=== PATIENT | female | born 1970 | race Caucasian/White ===

== ENCOUNTER 2016-08-08 06:30 | Emergency (ER) | payer OTHER ==
[~2016-08-08] VITALS: Ht 157.5 cm; Wt 113.4 kg
[~2016-08-08 06:30] MED LIST: ALPR1TAB2 PO; DIAZ10TA7 PO; ORE25 PO; VIC PO
[2016-08-08 06:42] VITALS: BP 129/74
--- NOTE | 2016-08-08 07:01 | NUR ---
TO ER BED 8
--- NOTE | 2016-08-08 07:49 | NUR ---
PT WENT TO XRAY;ACCOMPANIED BY TECH
--- NOTE | 2016-08-08 07:51 | NUR ---
PATIENT PRESENTS TO ED WITH RT LEG PAIN, S/P FALL LAST WEEK. PT STATES SHE HURT THE SAME FOOT AND WAS SEEN HERE IN ER LAST DEC.PT STATES SHE WAS DX W/ TORN LIGAMENT. RT FOOT IS SWOLLEN;DENIES N/V/D; SKIN IS PINK/WARM/DRY; AAOX4 WITH EVEN AND STEADY GAIT; LUNGS CLEAR BL; HR EVEN AND REGULAR; PT DENIES ANY FEVER, CP, SOB, OR COUGH AT THIS TIME; PATIENT STATES PAIN OF 9/10 AT THIS TIME; PATIENT POSITIONED FOR COMFORT; HOB ELEVATED; BEDRAILS UP X2; BED DOWN. ALL MONITORS IN PLACED.
--- NOTE | 2016-08-08 08:30 | NUR ---
VICKY CHRISTENSEN AT BEDSIDE.
--- NOTE | 2016-08-08 08:56 | NUR ---
PT LYING ON BED;NO ACUTE DISTRESS NOTED;WILL CONTINUE TO MONITOR PT.
--- NOTE | 2016-08-08 09:57 | NUR ---
PT RESTING ON BED;ASKED WHAT TIME SHE IS GOING TO BE DISCHARGED;EXPALINED TO PT THE DR IS DOING EVERYTHING SO SHE CAN BE DISCHARGE SOON;
[2016-08-08 10:52] VITALS: BP 124/62
== END 2016-08-08 10:52 | disposition home or self-care (01) ==
LOC: MED 06:30
DX: S93.401A Sprain of unspecified ligament of right ankle, initial encounter (principal); S83.8X1A Sprain of other specified parts of right knee, initial encounter; F41.9 Anxiety disorder, unspecified; Z90.49 Acquired absence of other specified parts of digestive tract; W01.0XXA Fall on same level from slipping, tripping and stumbling without subsequent striking against object, initial encounter; Y93.89 Activity, other specified; Y92.89 Other specified places as the place of occurrence of the external cause; Y99.8 Other external cause status
CPT/HCPCS: 73562; 73630; 99284

== ENCOUNTER 2016-11-17 06:05 | Emergency (ER) | payer OTHER ==
[~2016-11-17] VITALS: Ht 157.5 cm; Wt 95.3 kg
[2016-11-17 06:15] VITALS: BP 149/96
[2016-11-17] MEDS ORDERED: ONDANSETRON 4 MG/2 ML VIAL ONE (06:42)
[2016-11-17] MEDS ORDERED: KETOROLAC 30 MG/ML VIAL ONE (06:43)
[2016-11-17 07:18] VITALS: BP 126/96
== END 2016-11-17 07:10 | disposition home or self-care (01) ==
LOC: MED 06:05
DX: R11.2 Nausea with vomiting, unspecified (principal); R19.7 Diarrhea, unspecified; Z88.1 Allergy status to other antibiotic agents
CPT/HCPCS: 99283; J1885; J2405; J7030

== ENCOUNTER 2017-06-06 14:03 | Emergency (ER) | payer OTHER ==
[~2017-06-06] VITALS: Ht 157.5 cm; Wt 106.6 kg
[2017-06-06 14:10] VITALS: BP 136/98
[2017-06-06] MEDS ORDERED: ONDANSETRON 4 MG ODT PO ONE (15:30)
[2017-06-06] MEDS ORDERED: LORazepam 1 MG TAB PO ONE (15:30)
[2017-06-06] MEDS ORDERED: MECLIZINE 25 MG TAB PO ONE (15:30)
[2017-06-06 16:52] VITALS: BP 136/98
== END 2017-06-06 16:52 | disposition home or self-care (01) ==
LOC: MED 14:03
DX: H81.11 Benign paroxysmal vertigo, right ear (principal); Z88.1 Allergy status to other antibiotic agents
CPT/HCPCS: 99284; J8597; S0119

== ENCOUNTER 2018-02-07 08:21 | Emergency (ER) | payer OTHER ==
[~2018-02-07] VITALS: Ht 157.5 cm; Wt 106.6 kg
[2018-02-07 08:35] VITALS: BP 138/93
[2018-02-07] MEDS ORDERED: NACL 0.9% 1,000 ML IV SCH (09:26)
[2018-02-07] MEDS ORDERED: LORazepam 2 MG/ML VIAL IVP ONE (09:30)
[2018-02-07] MEDS ORDERED: ONDANSETRON 4 MG/2 ML VIAL IVP ONE (09:30)
[2018-02-07] MEDS ORDERED: PANTOPRAZOLE 40 MG INJ VIAL IVP ONE (09:30)
[2018-02-07 09:59] LABS: BASOPHILS # (AUTO) 0.1 K/uL (0.00-0.22); EOSINOPHILS # (AUTO) 0.3 K/uL (0-0.4); HEMATOCRIT 39.6 % (36-48); HEMOGLOBIN 12.6 g/dL (12.0-16.0); LYMPHOCYTES # (AUTO) 2.9 K/uL (2.5-16.5); LYMPHOCYTES % (AUTO) 29.5 % (20.5-51.1); MEAN CORPUSCULAR HEMOGLOBIN 27 pg (27-31); MEAN CORPUSCULAR HGB CONC 32 g/dL (33-37); MEAN CORPUSCULAR VOLUME 85.9 fL (80-94); MONOCYTES # (AUTO) 0.7 K/uL (0.8-1.0); MONOCYTES % (AUTO) 6.6 % (1.7-9.3); NEUTROPHILS # (AUTO) 5.9 K/uL (1.8-7.7); NEUTROPHILS % (AUTO) 59.9 % (42.2-75.2); PLATELET COUNT (AUTO) 344 K/uL (140-450); RED BLOOD CELL COUNT(AUTO) 4.61 MIL/uL (4.20-5.40); RED CELL DISTRIBUTION WIDTH 15.6 % (11.6-13.7)
[2018-02-07 10:21] LABS: ANION GAP 16.7 (8-16); CARBON DIOXIDE 24.3 mmol/L (21-32); CREATININE 1.2 mg/dL (0.6-1.3)
[2018-02-07 10:26] LABS: TOTAL BILIRUBIN 0.5 mg/dL (0.0-1.0)
[2018-02-07 10:31] LABS: BILIRUBIN,URINE NEGATIVE (NEGATIVE); BLOOD, URINE TRACE (NEGATIVE); COLOR,URINE YELLOW (YELLOW); PH,URINE 6.5 (5.0-9.0); UGLUCOSE NEGATIVE (NEGATIVE)
[2018-02-07 10:32] LABS: LEUKOCYTE ESTERASE ,URINE NEGATIVE (NEGATIVE); NITRITE, URINE NEGATIVE (NEGATIVE)
[2018-02-07 10:38] LABS: APPEARANCE,URINE SLIGHTLY HAZY (CLEAR); RBC,URINE 0-5 (RARE) /HPF (0-5)
[2018-02-07 10:42] LABS: WBC,URINE NONE SEEN /HPF (0-5)
[2018-02-07 10:43] LABS: YEAST,URINE Few /HPF (None Seen)
[2018-02-07] MEDS ORDERED: FLUCONAZOLE 100 MG TAB PO ONE (11:45)
[2018-02-07 12:05] VITALS: BP 126/59
== END 2018-02-07 12:06 | disposition home or self-care (01) ==
LOC: MED 08:21
DX: K29.70 Gastritis, unspecified, without bleeding (principal); F41.9 Anxiety disorder, unspecified; Z90.49 Acquired absence of other specified parts of digestive tract; Z79.899 Other long term (current) drug therapy; Z88.1 Allergy status to other antibiotic agents
CPT/HCPCS: 36415; 80053; 81001; 81025; 83690; 85025; 87086; 96361; 96374; 96375; 99284; C9113; J2060; J2405; J7030

== ENCOUNTER 2018-02-11 05:00 | Observation (INO) | payer OTHER ==
[~2018-02-11] VITALS: Ht 157.5 cm; Wt 134.9 kg
[2018-02-11 05:11] VITALS: BP_SYST 120; BP_DIAS 0; BP_DIAS 88
[2018-02-11] MEDS ORDERED: LORazepam 2 MG/ML VIAL IVP ONE (06:00)
[2018-02-11] MEDS ORDERED: ONDANSETRON 4 MG/2 ML VIAL IVP ONE (06:00)
[2018-02-11] MEDS ORDERED: NACL 0.9% 1,000 ML IV ONE (06:00)
[2018-02-11 06:52] LABS: FREE T4 (FREE THYROXINE) 1.28 ng/dL (0.76-1.46); THYROID STIMULATING HORMONE 4.69 uIU/mL (0.34-3.74)
[2018-02-11 07:00] LABS: BARBITURATE, URINE NEG. ng/ml (NEG <=200); BENZODIAZEPINE, URINE NEG. ng/mL (NEG <=200); CANNABINOID, URINE POS. ng/mL (NEG <=50); COCAINE, URINE NEG. ng/mL (NEG <=300); OPIATE, URINE NEG. ng/mL (NEG <=2000); PHENCYCLIDINE SCREEN,URINE NEG. ng/mL (NEG <=25)
[2018-02-11] MEDS ORDERED: NACL 0.9% 1,000 ML IV SCH (07:39)
[2018-02-11] MEDS ORDERED: ACETAMINOPHEN 325 MG TAB PO PRN (07:40)
[2018-02-11] MEDS ORDERED: ONDANSETRON 4 MG/2 ML VIAL IVP PRN (07:40)
[2018-02-11 08:55] VITALS: BP 122/66
[2018-02-11] MEDS ORDERED: PANTOPRAZOLE 40 MG INJ VIAL IVP SCH (09:00)
[2018-02-11 09:03] VITALS: BP 135/72
[2018-02-11] MEDS ORDERED: MIDAZOLAM 2 MG/2 ML VIAL ONE ×2 (11:15→11:16)
[2018-02-11] MEDS ORDERED: fentaNYL 0.05 MG/ML VIAL ONE (11:15)
[2018-02-11] MEDS ORDERED: MIDAZOLAM 2 MG/2 ML VIAL IVP ONE (12:05)
[2018-02-11] MEDS ORDERED: fentaNYL 0.05 MG/ML VIAL IVP ONE (12:05)
[2018-02-11] MEDS ORDERED: PANT40EC PO (15:40)
[2018-02-11] MEDS ORDERED: SUCR1TAB35 PO (15:41)
[2018-02-11] MEDS ORDERED: BEN10 PO (15:43)
== END 2018-02-11 16:15 | disposition home or self-care (01) ==
LOC: MED 05:00 → MTU 07:39 → INTOOBSV 07:39
PROVIDERS: ADMIT Hospitalist; ATTEND Hospitalist
PROC: 0DB68ZX Excision of Stomach, Via Natural or Artificial Opening Endoscopic, Diagnostic (ICD-10-PCS; principal; 2018-02-11 11:00)
DX: K29.00 Acute gastritis without bleeding (principal); K21.0 Gastro-esophageal reflux disease with esophagitis; K44.9 Diaphragmatic hernia without obstruction or gangrene; R11.0 Nausea; R10.13 Epigastric pain; Z88.1 Allergy status to other antibiotic agents; Z91.010 Allergy to peanuts
CPT/HCPCS: 36415; 43239; 76705; 80305; 82948; 84439; 84443; 84484; 87081; 88305; 88312; 88313; 93005; 96361; 96374; 96375; 99285; C9113; G0378; J2060; J2250; J2405; J3010; J7030; Q0092

== ENCOUNTER 2019-12-20 23:26 | Emergency (ER) | payer OTHER ==
[~2019-12-20] VITALS: Ht 157.5 cm; Wt 123.8 kg
[~2019-12-20 23:26] MED LIST changes: +BEN10 PO; +PANT40EC PO; +SUCR1TAB35 PO
[2019-12-20 23:35] VITALS: BP 145/90
--- NOTE | 2019-12-20 23:40 | NUR ---
w/c assist to bed 03
--- NOTE | 2019-12-20 23:47 | NUR ---
49 Y/O MALE C/O LT ANKLE/FOOT PAIN S/P FALLING IN THE SHOWER X YESTERDAY. PT STATES 10/10 STABBING PAIN. SWELLING NOTED. NO REDNESS. TENDER TO TOUCH. SKIN WARM AND DRY. PT STATES SHE TOOK A TYLENOL XTODAY WITH NO RELIEF. MHX: GALLBLADDER REMOVED, , GASTRITIS, ULCER ALLERGIES: KEFLEX, BACTRIM, MORPHINE,AMOXICILLIN, BENADRYL
--- NOTE | 2019-12-20 23:49 | NUR ---
XRAY AT BEDSIDE
--- NOTE | 2019-12-21 00:43 | NUR ---
providing relief for primary Rn Blake. assumed pt care at this time.
--- NOTE | 2019-12-21 00:47 | NUR ---
Dr. Aguirre at bedside.
[2019-12-21] MEDS ORDERED: KETOROLAC 60 MG/2 ML VIAL IM ONE (00:55)
--- NOTE | 2019-12-21 01:45 | NUR ---
PTS LEFT ANKEL WAS PLACED IN A ANKEL SPLINT. PTS PMSC WNL. PT WAS ALSO GIVEN CRUTCHES. PTS SHOWED GOOD USE OF CRUTCHES.
[2019-12-21 01:52] VITALS: BP 139/88
--- NOTE | 2019-12-21 01:52 | NUR ---
Patient discharged with v/s stable. Written and verbal after care instructions given and explained. Patient alert, oriented and verbalized understanding of instructions. Wheel Chair Assisted with to car. All questions addressed prior to discharge. ID band removed. Patient advised to follow up with PMD. Rx of MOTRIN AND NORCO given. Patient educated on indication of medication including possible reaction and side effects. Opportunity to ask questions provided and answered.
== END 2019-12-21 01:52 | disposition home or self-care (01) ==
LOC: MED 23:26
DX: S82.91XA Unspecified fracture of right lower leg, initial encounter for closed fracture (principal); Z88.1 Allergy status to other antibiotic agents; Z88.6 Allergy status to analgesic agent; Z88.8 Allergy status to other drugs, medicaments and biological substances; Z90.49 Acquired absence of other specified parts of digestive tract; Z98.890 Other specified postprocedural states; Z79.899 Other long term (current) drug therapy; X58.XXXA Exposure to other specified factors, initial encounter; Y93.89 Activity, other specified; Y92.89 Other specified places as the place of occurrence of the external cause; Y99.8 Other external cause status
CPT/HCPCS: 29515; 73610; 96372; 99283; J1885; Q0092

== ENCOUNTER 2020-01-10 19:58 | Emergency (ER) | payer OTHER ==
[~2020-01-10] VITALS: Ht 157.5 cm; Wt 131.1 kg
[2020-01-10 20:05] VITALS: BP 141/87
[2020-01-10] MEDS ORDERED: GABAPENTIN 300 MG CAP PO ONE (20:35)
[2020-01-10] MEDS ORDERED: ACETAMINOPHEN EXTRA STRENGTH 500 MG TAB PO ONE (20:35)
[2020-01-10 21:03] LABS: BASOPHILS # (AUTO) 0.1 K/uL (0.00-0.22); BASOPHILS % (AUTO) 0.8 % (0.0-2.0); EOSINOPHILS # (AUTO) 0.2 K/uL (0-0.4); EOSINOPHILS % (AUTO) 2.1 % (0.0-4.0); HEMATOCRIT 34.3 % (36-48); HEMOGLOBIN 11.2 g/dL (12.0-16.0); LYMPHOCYTES # (AUTO) 3.2 K/uL (2.5-16.5); LYMPHOCYTES % (AUTO) 31.8 % (20.5-51.1); MEAN CORPUSCULAR HEMOGLOBIN 26 pg (27-31); MEAN CORPUSCULAR HGB CONC 33 g/dL (33-37); MEAN CORPUSCULAR VOLUME 79.5 fL (80-94); MONOCYTES # (AUTO) 0.8 K/uL (0.8-1.0); MONOCYTES % (AUTO) 7.6 % (1.7-9.3); NEUTROPHILS # (AUTO) 5.9 K/uL (1.8-7.7); NEUTROPHILS % (AUTO) 57.7 % (42.2-75.2); PLATELET COUNT (AUTO) 345 K/uL (140-450); RED BLOOD CELL COUNT(AUTO) 4.32 MIL/uL (4.20-5.40); WHITE BLOOD COUNT (AUTO) 10.2 K/uL (4.8-10.8)
[2020-01-10] MEDS ORDERED: NACL 0.9% 1,000 ML IV ONE (21:05)
[2020-01-10] MEDS: KETOROLAC 15 MG/ML VIAL IVP ONE ×2 (21:07→21:57)
[2020-01-10 21:28] LABS: ALBUMIN 3.1 g/dL (3.4-5.0); CARBON DIOXIDE 25.9 mmol/L (21-32); CREATININE 1.2 mg/dL (0.6-1.3); POTASSIUM 3.9 mmol/L (3.5-5.1); TOTAL BILIRUBIN 0.6 mg/dL (0.0-1.0)
[2020-01-10 23:35] VITALS: BP 141/87
== END 2020-01-10 23:35 | disposition home or self-care (01) ==
LOC: MED 19:58
DX: R10.32 Left lower quadrant pain (principal); D25.9 Leiomyoma of uterus, unspecified; I10 Essential (primary) hypertension; Z88.1 Allergy status to other antibiotic agents; Z88.2 Allergy status to sulfonamides; Z88.6 Allergy status to analgesic agent; Z90.49 Acquired absence of other specified parts of digestive tract; Z98.890 Other specified postprocedural states; Z79.899 Other long term (current) drug therapy
CPT/HCPCS: 36415; 74177; 80053; 81002; 81025; 83690; 84703; 85025; 96361; 96374; 99285; J1885; Q9967

== ENCOUNTER 2020-07-02 07:55 | Emergency (ER) | payer OTHER ==
[~2020-07-02] VITALS: Ht 157.5 cm; Wt 135.2 kg
[~2020-07-02 07:55] MED LIST changes: +HYDR-4004 PO; -ORE25 PO
[2020-07-02 08:04] VITALS: BP 142/93
--- NOTE | 2020-07-02 08:04 | NUR ---
Patient transferred to bed 6 via wheelchair by triage nurse.
--- NOTE | 2020-07-02 08:04 | NUR ---
Dr. Kebede is evaluating the patient at bedside.
[2020-07-02] MEDS ORDERED: NACL 0.9% 1,000 ML IV ONE (08:10)
[2020-07-02] MEDS ORDERED: MECLIZINE 25 MG TAB PO ONE (08:10)
[2020-07-02] MEDS ORDERED: ONDANSETRON 4 MG/2 ML VIAL IVP ONE (08:10)
[2020-07-02] MEDS ORDERED: LORazepam 2 MG/ML VIAL IVP ONE (08:10)
--- NOTE | 2020-07-02 08:51 | NUR ---
bib family c/o dizziness last night with N/V. pt states she feels like she is having vertigo, felt like room spinning when she was lying down in bed this am. took meclizine and vomited and then took another one after hx: gastritis, anxiety, vertigo, cholecystectomy
--- NOTE | 2020-07-02 09:17 | NUR ---
PT WHEELED TO BATHROOM.
[2020-07-02] MEDS ORDERED: MECL-303 PO (09:54)
[2020-07-02] MEDS ORDERED: DIAZ2TAB6 PO (09:54)
[2020-07-02] MEDS ORDERED: ONDA-24 SL (09:54)
--- NOTE | 2020-07-02 09:57 | NUR ---
Dr. Kebede is reevaluating the patient at bedside.
[2020-07-02 11:15] VITALS: BP 138/63
--- NOTE | 2020-07-02 11:15 | NUR ---
Patient discharged with v/s stable. Written and verbal after care instructions given and explained. Patient alert, oriented and verbalized understanding of instructions. Ambulatory with steady gait. All questions addressed prior to discharge. ID band removed. Patient advised to follow up with PMD. Rx of VALIUM, ANTIVERT, AND ZOFRAN given. Patient educated on indication of medication including possible reaction and side effects. Opportunity to ask questions provided and answered.
[2020-07-03] MEDS ORDERED: MECL-303 PO (08:57)
== END 2020-07-02 11:15 | disposition home or self-care (01) ==
LOC: MED 07:55
DX: R42 Dizziness and giddiness (principal); Z88.1 Allergy status to other antibiotic agents; Z88.5 Allergy status to narcotic agent; Z79.899 Other long term (current) drug therapy
CPT/HCPCS: 81002; 81025; 96361; 96374; 96375; 99284; J2060; J2405; J7030; J8597

== ENCOUNTER 2020-07-03 06:10 | Emergency (ER) | payer OTHER ==
[~2020-07-03] VITALS: Ht 157.5 cm; Wt 134.7 kg
[~2020-07-03 06:10] MED LIST changes: +DIAZ2TAB6 PO; +MECL-303 PO; +ONDA-24 SL
[2020-07-03 06:21] VITALS: BP 126/78
--- NOTE | 2020-07-03 06:31 | NUR ---
PT TAKEN TO BED 11
--- NOTE | 2020-07-03 06:42 | NUR ---
49 Y/O FEMALE BIB FOR C/O LEFT LOWER BACK PAIN. PER PATIENT, " I WOKE UP & WHEN I GOT UP FROM BED AND I FELT A 'POP/PUNCH' ON MY LOWER LEFT BACK BY MY RIB" PT STATES HER PAIN IS A 10/10 "SHARP"; RADIATES ONLY WITH MOVEMENT. PATIENT WAS SEEN YESTERDAY FOR VERTIGO AND SINUSITIS MEDICATIONS WHERE GIVEN. MEDHX: GALLBLADDER SURGERY; 2 ; GENERAL ANXIETY DISORDER; TORN ACL IN THE LEFT KNEE ALLERGIES: PENICILLIN; KEFLEX; BACTRIM; MORPHINE; BENADRYL; TYLENOL WITH CODEINE MEDICATIONS: MECLIZINE; DIAZEPAM; SULCRUFATE; OMEPRAZOLE
--- NOTE | 2020-07-03 06:51 | NUR ---
Pt was given water cup and ice chips as per request.
--- NOTE | 2020-07-03 07:13 | NUR ---
Dr. Myers examining patient.
--- NOTE | 2020-07-03 07:15 | NUR ---
Report given to Gladys GALE for continuity of care.
--- NOTE | 2020-07-03 07:16 | NUR ---
Received report from BALJINDER Bardales, transfer of care at this time.
--- NOTE | 2020-07-03 07:32 | NUR ---
automobile glass technician at pt bedside.
[2020-07-03] MEDS: MECLIZINE 25 MG TAB PO ONE (07:34)
[2020-07-03] MEDS: ONDANSETRON 4 MG/2 ML VIAL IVP ONE (07:37)
[2020-07-03] MEDS: NACL 0.9% 1,000 ML IV ONE (07:38)
--- NOTE | 2020-07-03 07:39 | NUR ---
Pt unable to provide UA at this time, made aware at this time.
[2020-07-03 07:41] LABS: BASOPHILS # (AUTO) 0.1 K/uL (0.00-0.22); BASOPHILS % (AUTO) 0.9 % (0.0-2.0); EOSINOPHILS # (AUTO) 0.2 K/uL (0-0.4); EOSINOPHILS % (AUTO) 2.5 % (0.0-4.0); HEMATOCRIT 35.5 % (36-48); HEMOGLOBIN 11.3 g/dL (12.0-16.0); LYMPHOCYTES # (AUTO) 2.4 K/uL (2.5-16.5); MEAN CORPUSCULAR HEMOGLOBIN 25 pg (27-31); MEAN CORPUSCULAR HGB CONC 32 g/dL (33-37); MEAN CORPUSCULAR VOLUME 78.6 fL (80-94); MONOCYTES # (AUTO) 0.5 K/uL (0.8-1.0); MONOCYTES % (AUTO) 6.6 % (1.7-9.3); NEUTROPHILS # (AUTO) 4.1 K/uL (1.8-7.7); PLATELET COUNT (AUTO) 370 K/uL (140-450); RED BLOOD CELL COUNT(AUTO) 4.51 MIL/uL (4.20-5.40); RED CELL DISTRIBUTION WIDTH 17.1 % (11.6-13.7); WHITE BLOOD COUNT (AUTO) 7.2 K/uL (4.8-10.8)
[2020-07-03 07:56] LABS: ALBUMIN 3.2 g/dL (3.4-5.0); ANION GAP 12.4 (8-16); CARBON DIOXIDE 25.6 mmol/L (21-32); CREATININE 1.2 mg/dL (0.6-1.3); TOTAL BILIRUBIN 0.5 mg/dL (0.0-1.0)
[2020-07-03] MEDS: KETOROLAC 15 MG/ML VIAL IVP ONE (07:56)
--- NOTE | 2020-07-03 08:25 | NUR ---
Pt W/C assisted to restroom for UA collection.
--- NOTE | 2020-07-03 08:29 | NUR ---
Pt ambulated to ER bed 11 with a steady gait.
[2020-07-03] MEDS ORDERED: MECL-303 PO (08:57)
[2020-07-03 09:20] VITALS: BP 117/69
--- NOTE | 2020-07-03 09:21 | NUR ---
Patient discharged with v/s stable. Written and verbal after care instructions given and explained. Patient alert, oriented and verbalized understanding of instructions. Ambulatory with steady gait. All questions addressed prior to discharge. ID band removed. Patient advised to follow up with PMD. Rx of meclizine 25mg TID PO given. Patient educated on indication of medication including possible reaction and side effects. Opportunity to ask questions provided and answered.
== END 2020-07-03 09:14 | disposition home or self-care (01) ==
LOC: MED 06:10
DX: H81.399 Other peripheral vertigo, unspecified ear (principal)
CPT/HCPCS: 36415; 80053; 81002; 81025; 85025; 96361; 96374; 96375; 99284; J1885; J2405; J7030; J8597; 93005

== ENCOUNTER 2021-01-14 05:55 | Emergency (ER) | payer OTHER ==
[~2021-01-14] VITALS: Ht 157.5 cm; Wt 134.7 kg
[~2021-01-14 05:55] MED LIST changes: +ONDA-188 SL; -ONDA-24 SL
[2021-01-14 05:59] VITALS: BP 141/99
--- NOTE | 2021-01-14 06:15 | NUR ---
PT TAKEN TO BED 8
--- NOTE | 2021-01-14 06:20 | NUR ---
Dr. Bailey examining patient.
--- NOTE | 2021-01-14 06:40 | NUR ---
PATIENT STATES SHE CANNOT PROVIDE A URINE SAMPLE YET SHE WENT TWICE BEFORE COMING
[2021-01-14 06:53] LABS: BASOPHILS # (AUTO) 0.1 K/uL (0.00-0.22); BASOPHILS % (AUTO) 1.2 % (0.0-2.0); EOSINOPHILS # (AUTO) 0.2 K/uL (0-0.4); EOSINOPHILS % (AUTO) 2.4 % (0.0-4.0); HEMATOCRIT 33.4 % (36-48); HEMOGLOBIN 10.8 g/dL (12.0-16.0); LYMPHOCYTES # (AUTO) 2.5 K/uL (2.5-16.5); MEAN CORPUSCULAR HEMOGLOBIN 25 pg (27-31); MEAN CORPUSCULAR HGB CONC 32 g/dL (33-37); MEAN CORPUSCULAR VOLUME 77.1 fL (80-94); MONOCYTES # (AUTO) 0.6 K/uL (0.8-1.0); MONOCYTES % (AUTO) 7.5 % (1.7-9.3); NEUTROPHILS # (AUTO) 4.2 K/uL (1.8-7.7); NEUTROPHILS % (AUTO) 55.9 % (42.2-75.2); PLATELET COUNT (AUTO) 396 K/uL (140-450); RED BLOOD CELL COUNT(AUTO) 4.34 MIL/uL (4.20-5.40); WHITE BLOOD COUNT (AUTO) 7.5 K/uL (4.8-10.8)
--- NOTE | 2021-01-14 07:05 | NUR ---
RECEIVED REPORT FROM KARENA GALE, ASSUMED CARE AT THIS TIME.
[2021-01-14 07:16] LABS: ALBUMIN 3.1 g/dL (3.4-5.0); ANION GAP 8.8 (8-16); CARBON DIOXIDE 27.3 mmol/L (21-32); CREATININE 1.2 mg/dL (0.6-1.3); POTASSIUM 4.1 mmol/L (3.5-5.1); THYROID STIMULATING HORMONE 2.68 uIU/mL (0.34-3.74); TOTAL BILIRUBIN 0.5 mg/dL (0.0-1.0)
--- NOTE | 2021-01-14 07:26 | NUR ---
PATIENT AMBULATED TO RESTROOM WITH STEADY GAIT TO ATTEMPT TO PROVIDE URINE SAMPLE.
[2021-01-14 07:53] VITALS: BP 137/66
--- NOTE | 2021-01-14 07:54 | NUR ---
Patient discharged with v/s stable. Written and verbal after care instructions given and explained. Patient verbalized understanding. Ambulatory with steady gait. All questions addressed prior to discharge. Advised to follow up with PMD.
== END 2021-01-14 07:54 | disposition home or self-care (01) ==
LOC: MED 05:55
DX: R00.2 Palpitations (principal); F41.9 Anxiety disorder, unspecified; K21.9 Gastro-esophageal reflux disease without esophagitis; Z90.49 Acquired absence of other specified parts of digestive tract; Z98.890 Other specified postprocedural states; Z79.899 Other long term (current) drug therapy; Z88.1 Allergy status to other antibiotic agents; Z88.5 Allergy status to narcotic agent; Z88.8 Allergy status to other drugs, medicaments and biological substances
CPT/HCPCS: 36415; 80053; 81002; 81025; 84443; 85025; 93005; 99284

== ENCOUNTER 2021-05-05 05:15 | Emergency (ER) | payer OTHER ==
[~2021-05-05] VITALS: Ht 157.5 cm; Wt 130.2 kg
[2021-05-05 05:26] VITALS: BP 139/71
--- NOTE | 2021-05-05 05:33 | NUR ---
PT TAKEN TO BED 4
--- NOTE | 2021-05-05 05:43 | NUR ---
50 Y/O FEMALE BIB SELF, C/O ABDOMINAL PAIN X3 DAYS. PATIENT PRESENTS TO ED WITH COMPLAINTS OF PAIN, N/V, ADB GURGGLING, LOOSE STOOL, BELCHING, AND A BLOATED FEELING. PT STATES SHE ATE SOMETHING QUESTIONABLE ON MONDAY AND ON MONDAY SHE STARTED TO HAVE SYMPTOMS; PT IS UNABLE TO HOLD DOWN FOOD OR WATER X 3 DAYS. DENIES DIARRHE BUT STATES STOOL IS LOOSE; SKIN IS PINK/WARM/DRY; AAOX4 WITH EVEN AND STEADY GAIT; PT DENIES ANY FEVER, CP, SOB, OR COUGH AT THIS TIME; PATIENT STATES PAIN OF 10/10 AT THIS TIME; VSS; PATIENT SEATED IN CHAIR FOR COMFORT; BED DOWN. ER MD MADE AWARE OF PT STATUS. HX: GERD, CHOLECYSTECTOMY, KAREN, GASTRITIS ALLERGY: KEFLEX, BACTRIM, PCN, MS, BENADRYL MED: SUCRALFATE, FAMOTADINE, OMEPRAZOLE
--- NOTE | 2021-05-05 06:04 | NUR ---
LABS DRAWN AT BEDSIDE
[2021-05-05 06:07] LABS: BASOPHILS # (AUTO) 0.1 K/uL (0.00-0.22); BASOPHILS % (AUTO) 1.1 % (0.0-2.0); EOSINOPHILS # (AUTO) 0.3 K/uL (0-0.4); EOSINOPHILS % (AUTO) 3.3 % (0.0-4.0); HEMATOCRIT 33.7 % (36-48); LYMPHOCYTES # (AUTO) 3.1 K/uL (2.5-16.5); MEAN CORPUSCULAR HEMOGLOBIN 25 pg (27-31); MEAN CORPUSCULAR HGB CONC 33 g/dL (33-37); MEAN CORPUSCULAR VOLUME 76.2 fL (80-94); MONOCYTES # (AUTO) 0.6 K/uL (0.8-1.0); MONOCYTES % (AUTO) 7.1 % (1.7-9.3); NEUTROPHILS # (AUTO) 4.9 K/uL (1.8-7.7); NEUTROPHILS % (AUTO) 54.5 % (42.2-75.2); PLATELET COUNT (AUTO) 410 K/uL (140-450); RED BLOOD CELL COUNT(AUTO) 4.43 MIL/uL (4.20-5.40); RED CELL DISTRIBUTION WIDTH 17.6 % (11.6-13.7); WHITE BLOOD COUNT (AUTO) 9.1 K/uL (4.8-10.8)
[2021-05-05] MEDS: NACL 0.9% 1,000 ML IV SCH (06:18)
--- NOTE | 2021-05-05 06:18 | NUR ---
PT TAKEN TO CT
[2021-05-05] MEDS: KETOROLAC 30 MG/ML VIAL IVP ONE (06:19)
[2021-05-05] MEDS: ONDANSETRON 4 MG/2 ML VIAL IVP ONE (06:19)
[2021-05-05] MEDS: PANTOPRAZOLE 40 MG INJ VIAL IVP ONE (06:20)
--- NOTE | 2021-05-05 06:25 | NUR ---
PT RETURNED FROM CT
[2021-05-05 06:31] LABS: ALBUMIN 2.9 g/dL (3.4-5.0); ANION GAP 11.6 (8-16); CARBON DIOXIDE 24.3 mmol/L (21-32); CREATININE 1.1 mg/dL (0.6-1.3); POTASSIUM 3.9 mmol/L (3.5-5.1); TOTAL BILIRUBIN 0.6 mg/dL (0.0-1.0)
--- NOTE | 2021-05-05 06:44 | NUR ---
Dr. Aguirre examining patient.
[2021-05-05] MEDS ORDERED: ACET-8386 PO (06:58)
[2021-05-05] MEDS ORDERED: ONDA8TAB87 PO (06:58)
[2021-05-05] MEDS ORDERED: IBUP-2213 PO (06:58)
--- NOTE | 2021-05-05 07:35 | NUR ---
TRANSFER OF CARE REPORT GIVEN TO DANNY GALE
[2021-05-05 07:45] VITALS: BP 133/70
--- NOTE | 2021-05-05 08:13 | NUR ---
Patient appears to be resting comfortably in bed. Vital Signs within normal limits. Respirations even and unlabored. Update given in regards care. Call light in reach
--- NOTE | 2021-05-05 08:26 | NUR ---
Lab contacted in regards to urine sample processing. Will process sample now.
[2021-05-05 08:40] LABS: BILIRUBIN,URINE NEGATIVE (NEGATIVE); BLOOD, URINE 3+ (NEGATIVE); COLOR,URINE YELLOW (YELLOW); LEUKOCYTE ESTERASE ,URINE NEGATIVE (NEGATIVE); NITRITE, URINE NEGATIVE (NEGATIVE); UGLUCOSE NEGATIVE (NEGATIVE)
[2021-05-05 08:45] LABS: APPEARANCE,URINE HAZY (CLEAR)
[2021-05-05 09:09] LABS: RBC,URINE 20-50 /HPF (0-5)
[2021-05-05 09:10] LABS: TRICHOMONAS,URINE None Seen /HPF (None Seen); YEAST,URINE None Seen /HPF (None Seen)
[2021-05-05 09:11] LABS: CALCIUM OXALATE CRYSTALS,UR None Seen /HPF (None Seen); OTHER CRYSTALS,URINE None Seen /HPF (None Seen); TRIPLE PHOSPHATE CRYSTAL,UR None Seen /HPF (None Seen); URIC ACID CRYSTALS,URINE None Seen /HPF (None Seen)
[2021-05-05 09:13] LABS: COARSE GRANULAR CASTS,URINE None Seen /LPF (None Seen); FINE GRANULAR CASTS,URINE None Seen /LPF (None Seen); HYALINE CASTS, URINE None Seen /LPF (None Seen); OTHER CASTS, URINE None Seen /LPF (None Seen); RED BLOOD CELL CASTS,URINE None Seen /LPF (None Seen); URINE AMORPHOUS URATE None Seen /HPF (None Seen); WAXY CASTS,URINE None Seen /LPF (None Seen)
--- NOTE | 2021-05-05 09:47 | NUR ---
Patient discharged with v/s stable. Written and verbal after care instructions given and explained. Patient alert, oriented and verbalized understanding of instructions. Ambulatory with steady gait. All questions addressed prior to discharge. ID band removed. Patient advised to follow up with PMD. Rx of NORCO 5/325, IBUPORFEN AND ZOFRAN given. Patient educated on indication of medication including possible reaction and side effects. Opportunity to ask questions provided and answered.
== END 2021-05-05 09:47 | disposition home or self-care (01) ==
LOC: MED 05:15
DX: R10.13 Epigastric pain (principal); R11.2 Nausea with vomiting, unspecified; R42 Dizziness and giddiness; K21.9 Gastro-esophageal reflux disease without esophagitis; Z88.0 Allergy status to penicillin; Z88.1 Allergy status to other antibiotic agents; Z88.5 Allergy status to narcotic agent
CPT/HCPCS: 36415; 74176; 80053; 81001; 83690; 85025; 87086; 96361; 96374; 96375; 99284; C9113; J1885; J2405; J7030

== ENCOUNTER 2021-05-27 02:54 | Emergency (ER) | payer OTHER ==
[~2021-05-27] VITALS: Ht 157.5 cm; Wt 100.7 kg
[~2021-05-27 02:54] MED LIST changes: +ACET-8386 PO; +IBUP-2213 PO; +ONDA8TAB87 PO
[2021-05-27 03:00] VITALS: BP 135/77
--- NOTE | 2021-05-27 03:08 | NUR ---
PT AMBULATED TO BED 07.
--- NOTE | 2021-05-27 03:12 | NUR ---
Dr. Batista at bedside to exam patient.
[2021-05-27] MEDS ORDERED: ALUMINUM HYD/MAG/SIMETHICONE 30 ML, DICYCLOMINE HCL LIQUID 20 MG, LIDOCAINE VISCOUS 2% ... PO ONE ×3 (03:20)
[2021-05-27] MEDS ORDERED: ALUMINUM HYD/MAG/SIMETHICONE 30 ML UDC ONE ×2 (03:22→03:23)
[2021-05-27] MEDS ORDERED: DICYCLOMINE HCL LIQUID 10 MG/5 ML UDC ONE (03:22)
--- NOTE | 2021-05-27 03:40 | NUR ---
PT GIVEN GI COCKTAIL. TOLERATED WELL. VICKY CHRISTENSEN AT BED SIDE
[2021-05-27] MEDS ORDERED: KETOROLAC 60 MG/2 ML VIAL IM ONE (03:50)
[2021-05-27] MEDS ORDERED: ONDANSETRON 4 MG ODT PO ONE (03:50)
[2021-05-27] MEDS ORDERED: DICY10SY13 PO (04:35)
[2021-05-27] MEDS ORDERED: SIME180C9 PO (04:35)
--- NOTE | 2021-05-27 04:42 | NUR ---
Patient discharged with v/s stable. Written and verbal after care instructions given and explained. Patient alert, oriented and verbalized understanding of instructions. Ambulatory with steady gait. All questions addressed prior to discharge. ID band removed. Patient advised to follow up with PMD. Rx of DICYCLOMINE HCI SIMETHICONE given. Patient educated on indication of medication including possible reaction and side effects. Opportunity to ask questions provided and answered.
[2021-05-27 04:44] VITALS: BP 135/77
== END 2021-05-27 04:42 | disposition home or self-care (01) ==
LOC: MED 02:54
DX: K58.9 Irritable bowel syndrome, unspecified (principal); R14.1 Gas pain; R14.0 Abdominal distension (gaseous); K21.9 Gastro-esophageal reflux disease without esophagitis; Z79.899 Other long term (current) drug therapy; Z88.1 Allergy status to other antibiotic agents; Z88.5 Allergy status to narcotic agent; Z88.8 Allergy status to other drugs, medicaments and biological substances
CPT/HCPCS: 81002; 81025; 96372; 99283; J1885; Q0162

== ENCOUNTER 2021-07-15 01:48 | Emergency (ER) | payer OTHER ==
[~2021-07-15] VITALS: Ht 157.5 cm; Wt 124.7 kg
[~2021-07-15 01:48] MED LIST changes: +DICY10SY13 PO; +SIME180C9 PO
[2021-07-15 02:02] VITALS: BP 118/95
--- NOTE | 2021-07-15 02:18 | NUR ---
PT WALKED TO BED 3
--- NOTE | 2021-07-15 02:20 | NUR ---
ERMD AT BEDSIDE
--- NOTE | 2021-07-15 02:22 | NUR ---
50 YO F BIBS W C/O OF LEFT ANTERIOR FLANK PAIN, 10/10 CONSTANT, "SHARP" X3 DAYS, + NAUSEA. TOOK IBUPROFEN YESTERDAY WITH LITTLE RELIEF. PMH: GASTRITIS, GERD, FIBROIDS MEDS: SUCRALFATE, OMEPRAZOLE, ALPRAZOLAM ALLERGY: KEFLEX, MS, BENADRYL, BACTRIM, PCN SX: GALLBLADDER, C-SECT
[2021-07-15] MEDS ORDERED: ONDANSETRON 4 MG TAB PO ONE (02:25)
[2021-07-15] MEDS ORDERED: ONDANSETRON 4 MG TAB ONE (02:28)
[2021-07-15 02:41] LABS: APPEARANCE,URINE CLEAR (CLEAR); BILIRUBIN,URINE NEGATIVE (NEGATIVE); BLOOD, URINE TRACE-I (NEGATIVE); COLOR,URINE YELLOW (YELLOW); LEUKOCYTE ESTERASE ,URINE NEGATIVE (NEGATIVE); NITRITE, URINE NEGATIVE (NEGATIVE); UGLUCOSE NEGATIVE (NEGATIVE)
--- NOTE | 2021-07-15 02:43 | NUR ---
PT TAKEN TO CT
[2021-07-15] MEDS ORDERED: KETOROLAC 60 MG/2 ML VIAL IM ONE (02:45)
[2021-07-15 02:54] LABS: RBC,URINE 0-5 /HPF (0-5)
[2021-07-15 02:55] LABS: WBC,URINE 0-5 /HPF (0-5)
[2021-07-15] MEDS ORDERED: ONDANSETRON 4 MG ODT PO ONE (03:10)
--- NOTE | 2021-07-15 03:22 | NUR ---
PROVIDED PT WITH BLANKET
--- NOTE | 2021-07-15 04:33 | NUR ---
Patient appears to be resting comfortably in bed. Vital Signs within normal limits. Respirations even and unlabored.
[2021-07-15 04:35] VITALS: BP 127/90
[2021-07-15] MEDS ORDERED: NITROFURANTOIN 100 MG CAP PO SCH (06:00)
[2021-07-15] MEDS ORDERED: KETO10TA2 PO (06:15)
[2021-07-15] MEDS ORDERED: NITR100C1 PO (06:15)
[2021-07-15] MEDS ORDERED: ONDA-188 SL (06:15)
--- NOTE | 2021-07-15 06:26 | NUR ---
Patient discharged with v/s stable. Written and verbal after care instructions given and explained. Patient alert, oriented and verbalized understanding of instructions. Ambulatory with steady gait. All questions addressed prior to discharge. ID band removed. Patient advised to follow up with PMD. Rx of ZOFRAN, NITROFURANTOIN & KETOROLAC given. Patient educated on indication of medication including possible reaction and side effects. Opportunity to ask questions provided and answered.
== END 2021-07-15 06:20 | disposition home or self-care (01) ==
LOC: MED 01:48
DX: N39.0 Urinary tract infection, site not specified (principal); R11.0 Nausea; K21.9 Gastro-esophageal reflux disease without esophagitis; Z88.5 Allergy status to narcotic agent; Z88.8 Allergy status to other drugs, medicaments and biological substances; Z79.899 Other long term (current) drug therapy; Z88.1 Allergy status to other antibiotic agents
CPT/HCPCS: 74176; 81001; 81025; 87086; 96372; 99284; J1885; Q0162

== ENCOUNTER 2021-07-18 06:28 | Emergency (ER) | payer OTHER ==
[~2021-07-18] VITALS: Ht 157.5 cm; Wt 125.2 kg
[~2021-07-18 06:28] MED LIST changes: +KETO10TA2 PO; +NITR100C1 PO
[2021-07-18 06:35] VITALS: BP 150/109
--- NOTE | 2021-07-18 06:44 | NUR ---
PT TAKEN TO BED 7
--- NOTE | 2021-07-18 07:05 | NUR ---
Dr. Aguirre examining patient.
[2021-07-18] MEDS ORDERED: KETOROLAC 60 MG/2 ML VIAL IM ONE (07:15)
--- NOTE | 2021-07-18 07:20 | NUR ---
Recieved report from AB Sebastian for transfer of care.
[2021-07-18] MEDS ORDERED: IBUP-2213 PO (07:42)
[2021-07-18] MEDS ORDERED: METR-435 PO (07:42)
[2021-07-18] MEDS ORDERED: CIPR500T4 PO (07:42)
--- NOTE | 2021-07-18 07:59 | NUR ---
Patient discharged with v/s stable. Written and verbal after care instructions given. Patient alert, oriented and verbalized understanding of instructions. Ambulatory with steady gait. All questions addressed prior to discharge. ID band removed. Patient advised to follow up with PMD. Rx of Ciprofloxacin HCL, Ibuprofen and Metronidazole given. Opportunity to ask questions provided and answered.
--- NOTE | 2021-07-18 08:00 | NUR ---
Chart checked and completed. The patient's care was reviewed and supervised by Zarina Suárez RN.
== END 2021-07-18 08:00 | disposition home or self-care (01) ==
LOC: MED 06:28
DX: R10.32 Left lower quadrant pain (principal); K21.9 Gastro-esophageal reflux disease without esophagitis; Z90.49 Acquired absence of other specified parts of digestive tract; Z88.5 Allergy status to narcotic agent; Z88.8 Allergy status to other drugs, medicaments and biological substances
CPT/HCPCS: 81002; 96372; 99283; J1885

== ENCOUNTER 2021-08-02 21:13 | Emergency (ER) | payer OTHER ==
[~2021-08-02] VITALS: Ht 157.5 cm; Wt 123.4 kg
[~2021-08-02 21:13] MED LIST changes: +CIPR500T4 PO; +METR-435 PO
[2021-08-02 21:50] VITALS: BP 166/73
--- NOTE | 2021-08-02 22:27 | NUR ---
PATIENT AMBULATED TO BED 7
[2021-08-02] MEDS ORDERED: KETOROLAC 30 MG/ML VIAL IVP ONE (22:35)
[2021-08-02] MEDS ORDERED: NACL 0.9% 1,000 ML IV ONE (22:35)
[2021-08-02 23:22] LABS: BASOPHILS # (AUTO) 0.1 K/uL (0.00-0.22); BASOPHILS % (AUTO) 1.4 % (0.0-2.0); EOSINOPHILS # (AUTO) 0.5 K/uL (0-0.4); EOSINOPHILS % (AUTO) 5.9 % (0.0-4.0); HEMATOCRIT 32.2 % (36-48); HEMOGLOBIN 10.2 g/dL (12.0-16.0); LYMPHOCYTES # (AUTO) 2.9 K/uL (2.5-16.5); LYMPHOCYTES % (AUTO) 34.2 % (20.5-51.1); MEAN CORPUSCULAR HEMOGLOBIN 24 pg (27-31); MEAN CORPUSCULAR HGB CONC 32 g/dL (33-37); MEAN CORPUSCULAR VOLUME 75.2 fL (80-94); MONOCYTES # (AUTO) 0.6 K/uL (0.8-1.0); MONOCYTES % (AUTO) 7.4 % (1.7-9.3); NEUTROPHILS # (AUTO) 4.3 K/uL (1.8-7.7); NEUTROPHILS % (AUTO) 51.1 % (42.2-75.2); PLATELET COUNT (AUTO) 373 K/uL (140-450); RED BLOOD CELL COUNT(AUTO) 4.28 MIL/uL (4.20-5.40); RED CELL DISTRIBUTION WIDTH 16.5 % (11.6-13.7); WHITE BLOOD COUNT (AUTO) 8.5 K/uL (4.8-10.8)
[2021-08-02 23:34] LABS: ALBUMIN 2.9 g/dL (3.4-5.0); CARBON DIOXIDE 26.4 mmol/L (21-32); CREATININE 1.1 mg/dL (0.6-1.3); POTASSIUM 4.4 mmol/L (3.5-5.1); TOTAL BILIRUBIN 0.4 mg/dL (0.0-1.0)
--- NOTE | 2021-08-03 00:50 | NUR ---
ua taken to lab
[2021-08-03 00:59] LABS: APPEARANCE,URINE CLEAR (CLEAR); BILIRUBIN,URINE NEGATIVE (NEGATIVE); BLOOD, URINE TRACE-L (NEGATIVE); COLOR,URINE YELLOW (YELLOW); LEUKOCYTE ESTERASE ,URINE NEGATIVE (NEGATIVE); NITRITE, URINE NEGATIVE (NEGATIVE); UGLUCOSE NEGATIVE (NEGATIVE)
[2021-08-03 01:28] LABS: RBC,URINE 0-5 /HPF (0-5); WBC,URINE 0-5 /HPF (0-5)
--- NOTE | 2021-08-03 01:51 | NUR ---
50 year old f bib self c/o stomach pain left side flank pain posterior back. pain 10/10 for x 1 month. diagnosis of divertulosis about 3 weeks ago. no blood in stool pt admitted vomiting and nausea denies diarrhes, f/cough allergies: bactrim, kelfex, penicillin, morphine rx: sucrlfate, famotidine, omperazole, alprazalam, citrizine, flonase prn
--- NOTE | 2021-08-03 02:19 | NUR ---
Patient appears to be resting comfortably in bed. Vital Signs within normal limits. Respirations even and unlabored.
--- NOTE | 2021-08-03 04:37 | NUR ---
CALLED RADIOLOGY FOR UPDATE ON CT. RAD[facility]OLOGU CALLED TO CHECK ON READING
[2021-08-03 05:36] VITALS: BP 151/84
--- NOTE | 2021-08-03 05:37 | NUR ---
DR. MARINO DISCHARGED PT
--- NOTE | 2021-08-03 05:55 | NUR ---
The patient's care was reviewed and supervised by Sheryl Sam RN.
== END 2021-08-03 05:37 | disposition home or self-care (01) ==
LOC: MED 21:13
DX: R10.32 Left lower quadrant pain (principal); K21.9 Gastro-esophageal reflux disease without esophagitis; Z88.0 Allergy status to penicillin; Z88.1 Allergy status to other antibiotic agents; Z88.5 Allergy status to narcotic agent; Z88.8 Allergy status to other drugs, medicaments and biological substances; Z79.899 Other long term (current) drug therapy
CPT/HCPCS: 36415; 74176; 80053; 81001; 83690; 85025; 87086; 96361; 96374; 99285; J1885; J7030

== ENCOUNTER 2021-08-28 20:29 | Emergency (ER) | payer OTHER ==
[~2021-08-28] VITALS: Ht 157.5 cm; Wt 123.4 kg
[2021-08-28 20:50] VITALS: BP 148/88
--- NOTE | 2021-08-28 20:56 | NUR ---
Patient waited in Lobby.
--- NOTE | 2021-08-28 21:07 | NUR ---
PT TAKEN TO XRAY
[2021-08-28] MEDS ORDERED: BPM/118S31 PO (22:12)
[2021-08-28 22:31] VITALS: BP 144/78
--- NOTE | 2021-08-28 22:31 | NUR ---
Patient discharged with v/s stable. Written and verbal after care instructions given and explained for cough. Patient alert, oriented and verbalized understanding of instructions. Ambulatory with steady gait. All questions addressed prior to discharge. ID band removed. Patient advised to follow up with PMD. Rx of Bromfed DM given. Patient educated on indication of medication including possible reaction and side effects. Opportunity to ask questions provided and answered.
== END 2021-08-28 22:31 | disposition home or self-care (01) ==
LOC: MED 20:29
DX: R05.9 Cough, unspecified (principal); K21.9 Gastro-esophageal reflux disease without esophagitis; F41.9 Anxiety disorder, unspecified; Z79.1 Long term (current) use of non-steroidal anti-inflammatories (NSAID); Z79.2 Long term (current) use of antibiotics; Z79.899 Other long term (current) drug therapy; Z79.891 Long term (current) use of opiate analgesic; Z88.0 Allergy status to penicillin; Z88.1 Allergy status to other antibiotic agents; Z88.5 Allergy status to narcotic agent
CPT/HCPCS: 71045; 99283

== ENCOUNTER 2021-11-02 08:10 | Emergency (ER) | payer OTHER ==
[~2021-11-02] VITALS: Ht 157.5 cm; Wt 123.4 kg
[~2021-11-02 08:10] MED LIST changes: +BPM/118S31 PO
[2021-11-02 08:13] VITALS: BP 129/101
[2021-11-02] MEDS ORDERED: ONDANSETRON 4 MG ODT PO ONE (10:05)
[2021-11-02] MEDS ORDERED: ONDA-188 PO (10:07)
[2021-11-02] MEDS ORDERED: MAG-27 PO (10:07)
[2021-11-02 10:15] VITALS: BP 129/101
== END 2021-11-02 10:15 | disposition home or self-care (01) ==
LOC: MED 08:10
DX: K29.70 Gastritis, unspecified, without bleeding (principal); R11.2 Nausea with vomiting, unspecified; K21.9 Gastro-esophageal reflux disease without esophagitis; Z90.49 Acquired absence of other specified parts of digestive tract; Z98.890 Other specified postprocedural states; Z88.1 Allergy status to other antibiotic agents; Z88.5 Allergy status to narcotic agent; Z88.8 Allergy status to other drugs, medicaments and biological substances; Z79.899 Other long term (current) drug therapy
CPT/HCPCS: 81002; 81025; 99283

== ENCOUNTER 2021-12-13 12:41 | Emergency (ER) | payer OTHER ==
[~2021-12-13] VITALS: Ht 154.9 cm; Wt 120.2 kg
[~2021-12-13 12:41] MED LIST changes: +MAG-27 PO; +ONDA-188 PO
[2021-12-13 13:08] VITALS: BP 169/77
[2021-12-13] MEDS ORDERED: KETOROLAC 30 MG/ML VIAL IM SCH (14:15)
[2021-12-13 14:42] LABS: BASOPHILS # (AUTO) 0.1 K/uL (0.00-0.22); EOSINOPHILS # (AUTO) 0.3 K/uL (0-0.4); EOSINOPHILS % (AUTO) 2.8 % (0.0-4.0); HEMATOCRIT 34.4 % (36-48); HEMOGLOBIN 11.1 g/dL (12.0-16.0); LYMPHOCYTES # (AUTO) 3.1 K/uL (2.5-16.5); LYMPHOCYTES % (AUTO) 28.6 % (20.5-51.1); MEAN CORPUSCULAR HEMOGLOBIN 24 pg (27-31); MEAN CORPUSCULAR HGB CONC 32 g/dL (33-37); MEAN CORPUSCULAR VOLUME 73.1 fL (80-94); MONOCYTES # (AUTO) 0.6 K/uL (0.8-1.0); MONOCYTES % (AUTO) 5.7 % (1.7-9.3); NEUTROPHILS # (AUTO) 6.8 K/uL (1.8-7.7); NEUTROPHILS % (AUTO) 61.9 % (42.2-75.2); PLATELET COUNT (AUTO) 361 K/uL (140-450); RED CELL DISTRIBUTION WIDTH 17.7 % (11.6-13.7)
[2021-12-13 14:58] LABS: ALBUMIN 2.9 g/dL (3.4-5.0); ANION GAP 13.9 (8-16); CARBON DIOXIDE 24.1 mmol/L (21-32); CREATININE 1.1 mg/dL (0.6-1.3); TOTAL BILIRUBIN 0.6 mg/dL (0.0-1.0)
[2021-12-13 16:45] LABS: APPEARANCE,URINE CLEAR (CLEAR); BILIRUBIN,URINE NEGATIVE (NEGATIVE); BLOOD, URINE TRACE-I (NEGATIVE); COLOR,URINE YELLOW (YELLOW); LEUKOCYTE ESTERASE ,URINE NEGATIVE (NEGATIVE); NITRITE, URINE NEGATIVE (NEGATIVE); UGLUCOSE NEGATIVE (NEGATIVE)
[2021-12-13 17:07] LABS: RBC,URINE NONE SEEN /HPF (0-5); WBC,URINE NONE SEEN /HPF (0-5); YEAST,URINE Rare /HPF (None Seen)
[2021-12-13] MEDS ORDERED: ALPRAZolam 0.5 MG TAB PO PRN (17:30)
[2021-12-13] MEDS ORDERED: LID5T TP (18:45)
[2021-12-13] MEDS ORDERED: IBUP-2213 PO (18:46)
[2021-12-13] MEDS ORDERED: CYCL-711 PO (18:46)
[2021-12-13 19:19] VITALS: BP 124/64
== END 2021-12-13 19:22 | disposition home or self-care (01) ==
LOC: MED 12:41
DX: R10.31 Right lower quadrant pain (principal); K21.9 Gastro-esophageal reflux disease without esophagitis; F41.9 Anxiety disorder, unspecified; Z88.1 Allergy status to other antibiotic agents; Z88.5 Allergy status to narcotic agent; Z88.8 Allergy status to other drugs, medicaments and biological substances; Z79.899 Other long term (current) drug therapy; Z90.49 Acquired absence of other specified parts of digestive tract; Z98.890 Other specified postprocedural states
CPT/HCPCS: 36415; 71101; 74176; 76856; 80053; 81001; 81025; 83690; 85025; 96372; 99285; J1885; Q0092

== ENCOUNTER 2022-01-09 15:49 | Emergency (ER) | payer OTHER ==
[~2022-01-09] VITALS: Ht 157.5 cm; Wt 123.4 kg
[~2022-01-09 15:49] MED LIST changes: +CYCL-711 PO; +LID5T TP
[2022-01-09 16:00] VITALS: BP 124/95
[2022-01-09] MEDS ORDERED: KETOROLAC 30 MG/ML VIAL IVP ONE (16:15)
[2022-01-09] MEDS ORDERED: NACL 0.9% 1,000 ML IV ONE ×2 (16:15→18:30)
[2022-01-09] MEDS ORDERED: ONDANSETRON 4 MG/2 ML VIAL IVP ONE (16:15)
[2022-01-09] MEDS ORDERED: METR-435 PO (17:06)
[2022-01-09] MEDS ORDERED: IBUP-2213 PO (17:06)
[2022-01-09] MEDS ORDERED: DOCU-299 PO (17:06)
[2022-01-09] MEDS ORDERED: CIPR500T4 PO (17:06)
[2022-01-09] MEDS ORDERED: ONDA8TAB87 PO (17:06)
--- NOTE | 2022-01-09 17:30 | NUR ---
medicated for nausea and abd pain per dr order, st on cm, o2 sat 99% ra, sr up times 2
--- NOTE | 2022-01-09 18:37 | NUR ---
pt better about nausea, started iv fluids second bag per dr order, pt feels better about dizziness, still feels "dehydrated"
--- NOTE | 2022-01-09 19:24 | NUR ---
report to Shanna GALE, night guard
[2022-01-09 20:08] VITALS: BP 132/78
--- NOTE | 2022-01-09 20:08 | NUR ---
Patient discharged with v/s stable. Written and verbal after care instructions given and explained. Patient alert, oriented and verbalized understanding of instructions. Ambulatory with steady gait. All questions addressed prior to discharge. ID band removed. Patient advised to follow up with PMD. Rx of ibuprofen, zofran, ciprofloxacin, flagyl, colace given. Patient educated on indication of medication including possible reaction and side effects. Opportunity to ask questions provided and answered.
== END 2022-01-09 20:08 | disposition home or self-care (01) ==
LOC: MED 15:49
DX: K21.9 Gastro-esophageal reflux disease without esophagitis (principal); Z88.1 Allergy status to other antibiotic agents; Z88.5 Allergy status to narcotic agent; Z88.8 Allergy status to other drugs, medicaments and biological substances; Z90.49 Acquired absence of other specified parts of digestive tract; Z98.890 Other specified postprocedural states
CPT/HCPCS: 81025; 96365; 96366; 96375; 99284; J1885; J2405; J7030

== ENCOUNTER 2022-03-03 07:45 | Emergency (ER) | payer OTHER ==
[~2022-03-03] VITALS: Ht 157.5 cm; Wt 125.2 kg
[~2022-03-03 07:45] MED LIST changes: -ACET-8386 PO; +ACET-8905 PO; +DOCU-299 PO
--- NOTE | 2022-03-03 07:56 | NUR ---
Pt ambulated to bed 06 with steady/even gait.
--- NOTE | 2022-03-03 07:59 | NUR ---
51/F c/o nausea, vomiting x 1 episode, diarrhea >5 episodes with abdominal pain x 3 days. Patient A&Ox4, ambulatory, states Telehealth with PCP and RX Imodium, Zofran, Tylenol. Pt states umbilical pain 10/10, cramping/intermittent, radiating to epigastric region. Pain worsens with Imodium; no alleviating factors. Pt also states chills. reports abd pain worsening after taking Imodium. Abd tenderness to umbilical/epigastric region. Denies dysuria, constipation, urinary symptoms. VSS. Bed locked in lowest position, side rails x 1. PMH: GERD, gastritis, anxiety Meds: sucrate, omperazole, laprazolam PRN, imodium, zofran, tylenol Allergies: PCN, keflex, benadryl, morphine, bactrim Sx: cholecystectomy
[2022-03-03 08:01] VITALS: BP 149/91
--- NOTE | 2022-03-03 08:12 | NUR ---
Pt unable to void at this time.
--- NOTE | 2022-03-03 08:38 | NUR ---
Dr. Stevenson is evaluating patient at bedside
[2022-03-03] MEDS ORDERED: NACL 0.9% 1,000 ML IV ONE (08:40)
[2022-03-03] MEDS ORDERED: KETOROLAC 15 MG/ML VIAL IVP ONE (08:40)
--- NOTE | 2022-03-03 09:12 | NUR ---
Pt to CT via [facility].
--- NOTE | 2022-03-03 09:27 | NUR ---
Pt returned from CT via [facility].
[2022-03-03 09:39] LABS: ALBUMIN 2.7 g/dL (3.4-5.0); ANION GAP 10.9 (8-16); CARBON DIOXIDE 27.4 mmol/L (21-32); CREATININE 1.1 mg/dL (0.6-1.3); POTASSIUM 4.3 mmol/L (3.5-5.1); TOTAL BILIRUBIN 0.5 mg/dL (0.0-1.0)
[2022-03-03 09:40] LABS: BASOPHILS # (AUTO) 0.1 K/uL (0.00-0.22); BASOPHILS % (AUTO) 0.8 % (0.0-2.0); EOSINOPHILS # (AUTO) 0.2 K/uL (0-0.4); EOSINOPHILS % (AUTO) 2.5 % (0.0-4.0); HEMATOCRIT 31.1 % (36-48); HEMOGLOBIN 9.8 g/dL (12.0-16.0); LYMPHOCYTES # (AUTO) 2.4 K/uL (2.5-16.5); LYMPHOCYTES % (AUTO) 28.9 % (20.5-51.1); MEAN CORPUSCULAR HEMOGLOBIN 23 pg (27-31); MEAN CORPUSCULAR HGB CONC 32 g/dL (33-37); MEAN CORPUSCULAR VOLUME 74.4 fL (80-94); MONOCYTES # (AUTO) 0.6 K/uL (0.8-1.0); NEUTROPHILS # (AUTO) 5.1 K/uL (1.8-7.7); NEUTROPHILS % (AUTO) 60.8 % (42.2-75.2); PLATELET COUNT (AUTO) 371 K/uL (140-450); RED BLOOD CELL COUNT(AUTO) 4.17 MIL/uL (4.20-5.40); RED CELL DISTRIBUTION WIDTH 17.6 % (11.6-13.7); WHITE BLOOD COUNT (AUTO) 8.4 K/uL (4.8-10.8)
[2022-03-03 10:10] VITALS: BP 117/54
--- NOTE | 2022-03-03 10:11 | NUR ---
Pt states "abdominal cramping finally went away." States belching. All pt needs met.
[2022-03-03] MEDS ORDERED: ONDA-188 SL (10:43)
--- NOTE | 2022-03-03 10:49 | NUR ---
Patient discharged with v/s stable. Written and verbal after care instructions given and explained for Viral Gastroenteritis, Dehydration. Patient alert, oriented and verbalized understanding of instructions. Ambulatory with steady gait. All questions addressed prior to discharge. ID band removed. Patient advised to follow up with PMD. Rx of Zofran ODT given. Patient educated on indication of medication including possible reaction and side effects. Opportunity to ask questions provided and answered. Copies of CT results, blood work handed to patient. Off work note provided to pt.
== END 2022-03-03 10:49 | disposition home or self-care (01) ==
LOC: MED 07:45
DX: K21.9 Gastro-esophageal reflux disease without esophagitis (principal); F41.9 Anxiety disorder, unspecified; K29.70 Gastritis, unspecified, without bleeding; Z88.5 Allergy status to narcotic agent; Z79.1 Long term (current) use of non-steroidal anti-inflammatories (NSAID); Z88.8 Allergy status to other drugs, medicaments and biological substances; Z90.49 Acquired absence of other specified parts of digestive tract
CPT/HCPCS: 36415; 74176; 80053; 83690; 85025; 96361; 96374; 99284; J1885

== ENCOUNTER 2022-05-18 21:45 | Emergency (ER) | payer OTHER ==
[~2022-05-18] VITALS: Ht 157.5 cm; Wt 136.1 kg
[2022-05-18 21:50] VITALS: BP 127/77
--- NOTE | 2022-05-18 21:53 | NUR ---
to lobby a/w bed ambulatory
--- NOTE | 2022-05-18 22:49 | NUR ---
Dr. Gutiérrez examining patient.
[2022-05-18] MEDS ORDERED: NACL 0.9% 1,000 ML IV ONE (22:50)
[2022-05-18] MEDS ORDERED: ONDANSETRON 4 MG/2 ML VIAL IVP ONE (22:50)
[2022-05-18 23:04] LABS: BASOPHILS # (AUTO) 0.1 K/uL (0.00-0.22); BASOPHILS % (AUTO) 0.8 % (0.0-2.0); EOSINOPHILS # (AUTO) 0.3 K/uL (0-0.4); EOSINOPHILS % (AUTO) 2.7 % (0.0-4.0); HEMATOCRIT 32.3 % (36-48); HEMOGLOBIN 10.2 g/dL (12.0-16.0); LYMPHOCYTES # (AUTO) 3.4 K/uL (2.5-16.5); LYMPHOCYTES % (AUTO) 34.7 % (20.5-51.1); MEAN CORPUSCULAR HEMOGLOBIN 23 pg (27-31); MEAN CORPUSCULAR HGB CONC 32 g/dL (33-37); MEAN CORPUSCULAR VOLUME 73.2 fL (80-94); MONOCYTES # (AUTO) 0.6 K/uL (0.8-1.0); MONOCYTES % (AUTO) 6.3 % (1.7-9.3); NEUTROPHILS # (AUTO) 5.5 K/uL (1.8-7.7); NEUTROPHILS % (AUTO) 55.5 % (42.2-75.2); PLATELET COUNT (AUTO) 391 K/uL (140-450); RED BLOOD CELL COUNT(AUTO) 4.41 MIL/uL (4.20-5.40); RED CELL DISTRIBUTION WIDTH 18.1 % (11.6-13.7); WHITE BLOOD COUNT (AUTO) 9.9 K/uL (4.8-10.8)
[2022-05-18 23:20] LABS: ALBUMIN 3.4 g/dL (3.4-5.0); AMYLASE 35 U/L (25-115); ANION GAP 10.7 (8-16); ASPARTATE AMINOTRANSFERASE 11 U/L (15-37); CARBON DIOXIDE 27.4 mmol/L (21-32); CHLORIDE 101 mmol/L (98-107); GFR ARICAN-AMERICAN 75 mL/min (>90); GLUCOSE 104 mg/dL (74-106); LIPASE 128 U/L (73-393); POTASSIUM 4.1 mmol/L (3.5-5.1); SODIUM SERUM 135 mmol/L (136-145); TOTAL BILIRUBIN 0.4 mg/dL (0.0-1.0); UREA NITROGEN, BLOOD 20 mg/dL (7-18)
--- NOTE | 2022-05-18 23:50 | NUR ---
Patient resting in bed, A/Ox4, chest rise and fall symmetrical, no c/o pain or s/s of distress. Addendum: 05/19/22 at 0014 by [id number] Patient resting in bed, A/Ox4, chest rise and fall symmetrical, no s/s of distress.
[2022-05-18] MEDS ORDERED: KETOROLAC 30 MG/ML VIAL ONE (23:55)
[2022-05-18] MEDS ORDERED: ONDANSETRON 4 MG/2 ML VIAL ONE (23:55)
[2022-05-19] MEDS: KETOROLAC 30 MG/ML VIAL IVP ONE (00:02)
[2022-05-19 01:40] LABS: APPEARANCE,URINE SL CLOUDY (CLEAR); BILIRUBIN,URINE NEGATIVE (NEGATIVE); BLOOD, URINE TRACE-I (NEGATIVE); COLOR,URINE YELLOW (YELLOW); LEUKOCYTE ESTERASE ,URINE NEGATIVE (NEGATIVE); NITRITE, URINE NEGATIVE (NEGATIVE); UGLUCOSE NEGATIVE (NEGATIVE)
[2022-05-19 01:44] LABS: RBC,URINE 0-5 /HPF (0-5); WBC,URINE 0-5 /HPF (0-5)
--- NOTE | 2022-05-19 02:30 | NUR ---
Patient resting in bed, A/Ox4, chest rise and fall symmetrical, no c/o pain or s/s of distress.
[2022-05-19] MEDS ORDERED: BEN10 PO (02:58)
[2022-05-19] MEDS ORDERED: ACET-10509 PO (02:58)
[2022-05-19] MEDS ORDERED: [UNRECOGNIZED DRUG - CODE] PO (02:58)
[2022-05-19] MEDS ORDERED: ONDA-188 PO (02:58)
[2022-05-19] MEDS ORDERED: CIPR500T4 PO (03:20)
[2022-05-19] MEDS ORDERED: IBUP-2213 PO (03:21)
[2022-05-19 03:31] VITALS: BP 113/62
== END 2022-05-19 03:31 | disposition home or self-care (01) ==
LOC: MED 21:45
DX: N12 Tubulo-interstitial nephritis, not specified as acute or chronic (principal); R82.71 Bacteriuria; R10.32 Left lower quadrant pain; R10.12 Left upper quadrant pain; K21.9 Gastro-esophageal reflux disease without esophagitis; Z79.899 Other long term (current) drug therapy; Z79.1 Long term (current) use of non-steroidal anti-inflammatories (NSAID); Z79.2 Long term (current) use of antibiotics; Z79.891 Long term (current) use of opiate analgesic; Z88.0 Allergy status to penicillin; Z88.1 Allergy status to other antibiotic agents; Z88.8 Allergy status to other drugs, medicaments and biological substances; Z88.5 Allergy status to narcotic agent
CPT/HCPCS: 36415; 74176; 80053; 81001; 82150; 83690; 84703; 85025; 87086; 96361; 96374; 96375; 99285; J1885; J2405; J7030

== ENCOUNTER 2022-05-27 00:05 | Emergency (ER) | payer OTHER ==
[~2022-05-27] VITALS: Ht 157.5 cm; Wt 134.7 kg
[~2022-05-27 00:05] MED LIST changes: +ACET-10509 PO; +[UNRECOGNIZED DRUG - CODE] PO
[2022-05-27 00:13] VITALS: BP 139/93
[2022-05-27 01:26] LABS: BASOPHILS # (AUTO) 0.1 K/uL (0.00-0.22); EOSINOPHILS # (AUTO) 0.3 K/uL (0-0.4); HEMATOCRIT 32.1 % (36-48); HEMOGLOBIN 10.2 g/dL (12.0-16.0); LYMPHOCYTES # (AUTO) 3.4 K/uL (2.5-16.5); LYMPHOCYTES % (AUTO) 35.2 % (20.5-51.1); MEAN CORPUSCULAR HEMOGLOBIN 23 pg (27-31); MEAN CORPUSCULAR HGB CONC 32 g/dL (33-37); MEAN CORPUSCULAR VOLUME 72.5 fL (80-94); MONOCYTES # (AUTO) 0.7 K/uL (0.8-1.0); MONOCYTES % (AUTO) 7.4 % (1.7-9.3); NEUTROPHILS # (AUTO) 5.1 K/uL (1.8-7.7); NEUTROPHILS % (AUTO) 53.4 % (42.2-75.2); PLATELET COUNT (AUTO) 393 K/uL (140-450); RED BLOOD CELL COUNT(AUTO) 4.42 MIL/uL (4.20-5.40); RED CELL DISTRIBUTION WIDTH 18.7 % (11.6-13.7); WHITE BLOOD COUNT (AUTO) 9.6 K/uL (4.8-10.8)
[2022-05-27 02:14] LABS: ALBUMIN 2.9 g/dL (3.4-5.0); ANION GAP 11.2 (8-16); CARBON DIOXIDE 27.8 mmol/L (21-32); CREATININE 1.2 mg/dL (0.6-1.3); TOTAL BILIRUBIN 0.4 mg/dL (0.0-1.0)
[2022-05-27] MEDS ORDERED: KETOROLAC 60 MG/2 ML VIAL IM ONE ×2 (02:45→04:30)
[2022-05-27] MEDS ORDERED: DICYCLOMINE HCL LIQUID 20 MG, ALUMINUM HYD/MAG/SIMETHICONE 30 ML, LIDOCAINE VISCOUS 2% ... PO ONE ×6 (03:20→04:30)
--- NOTE | 2022-05-27 03:22 | NUR ---
PT TO BED
--- NOTE | 2022-05-27 03:30 | NUR ---
Patient lying in bed, A/Ox4, chest rise and fall symmetrical, no s/s of distress.
--- NOTE | 2022-05-27 03:50 | NUR ---
ER physician speaking with patient.
[2022-05-27] MEDS ORDERED: PEG4000P3 PO (04:27)
[2022-05-27] MEDS ORDERED: SIME125T38 PO (04:27)
[2022-05-27] MEDS ORDERED: SUCR1TAB35 PO (04:27)
[2022-05-27] MEDS ORDERED: DICYCLOMINE HCL LIQUID 10 MG/5 ML UDC ONE (04:33)
[2022-05-27] MEDS ORDERED: ALUMINUM HYD/MAG/SIMETHICONE 30 ML UDC ONE (04:33)
--- NOTE | 2022-05-27 04:43 | NUR ---
Patient lying in bed, A/Ox4, chest rise and fall symmetrical, no c/o pain or s/s of distress.
[2022-05-27 04:44] LABS: APPEARANCE,URINE CLEAR (CLEAR); BILIRUBIN,URINE NEGATIVE (NEGATIVE); BLOOD, URINE TRACE-I (NEGATIVE); COLOR,URINE YELLOW (YELLOW); LEUKOCYTE ESTERASE ,URINE NEGATIVE (NEGATIVE); NITRITE, URINE NEGATIVE (NEGATIVE); UGLUCOSE NEGATIVE (NEGATIVE)
[2022-05-27 04:57] LABS: RBC,URINE 0-5 /HPF (0-5); WBC,URINE 0-5 /HPF (0-5)
--- NOTE | 2022-05-27 05:10 | NUR ---
ER physician speaking with patient.
[2022-05-27 05:25] VITALS: BP 127/50
--- NOTE | 2022-05-27 05:25 | NUR ---
Patient lying in bed, A/Ox4, chest rise and fall symmetrical, no c/o pain or s/s of distress.
== END 2022-05-27 05:29 | disposition home or self-care (01) ==
LOC: MED 00:05
DX: K59.00 Constipation, unspecified (principal); K21.9 Gastro-esophageal reflux disease without esophagitis; Z88.1 Allergy status to other antibiotic agents; Z88.5 Allergy status to narcotic agent; Z88.8 Allergy status to other drugs, medicaments and biological substances; Z79.899 Other long term (current) drug therapy
CPT/HCPCS: 36415; 74018; 80053; 81001; 81025; 83690; 85025; 87086; 96372; 99284; J1885

== ENCOUNTER 2022-06-03 20:02 | Emergency (ER) | payer OTHER ==
[~2022-06-03] VITALS: Ht 157.5 cm; Wt 134.8 kg
[~2022-06-03 20:02] MED LIST changes: +PEG4000P3 PO; +SIME125T38 PO
[2022-06-03 20:05] VITALS: BP 124/83
--- NOTE | 2022-06-03 20:05 | NUR ---
TO LOBBY A/W BED AMBULATORY
[2022-06-03] MEDS ORDERED: NACL 0.9% 1,000 ML IV ONE (21:45)
[2022-06-03] MEDS ORDERED: KETOROLAC 30 MG/ML VIAL IVP ONE (21:45)
[2022-06-03 22:18] LABS: BASOPHILS # (AUTO) 0.1 K/uL (0.00-0.22); BASOPHILS % (AUTO) 0.9 % (0.0-2.0); EOSINOPHILS # (AUTO) 0.2 K/uL (0-0.4); EOSINOPHILS % (AUTO) 2.2 % (0.0-4.0); HEMATOCRIT 32.5 % (36-48); HEMOGLOBIN 10.4 g/dL (12.0-16.0); LYMPHOCYTES # (AUTO) 3.6 K/uL (2.5-16.5); LYMPHOCYTES % (AUTO) 38.5 % (20.5-51.1); MEAN CORPUSCULAR HEMOGLOBIN 24 pg (27-31); MEAN CORPUSCULAR HGB CONC 32 g/dL (33-37); MEAN CORPUSCULAR VOLUME 73.6 fL (80-94); MONOCYTES # (AUTO) 0.6 K/uL (0.8-1.0); MONOCYTES % (AUTO) 6.1 % (1.7-9.3); NEUTROPHILS # (AUTO) 4.9 K/uL (1.8-7.7); NEUTROPHILS % (AUTO) 52.3 % (42.2-75.2); PLATELET COUNT (AUTO) 398 K/uL (140-450); RED BLOOD CELL COUNT(AUTO) 4.41 MIL/uL (4.20-5.40); RED CELL DISTRIBUTION WIDTH 18.4 % (11.6-13.7); WHITE BLOOD COUNT (AUTO) 9.4 K/uL (4.8-10.8)
[2022-06-03 22:28] LABS: APPEARANCE,URINE CLEAR (CLEAR); BILIRUBIN,URINE NEGATIVE (NEGATIVE); BLOOD, URINE TRACE-I (NEGATIVE); COLOR,URINE YELLOW (YELLOW); LEUKOCYTE ESTERASE ,URINE NEGATIVE (NEGATIVE); NITRITE, URINE NEGATIVE (NEGATIVE); UGLUCOSE NEGATIVE (NEGATIVE)
--- NOTE | 2022-06-03 22:40 | NUR ---
PT TO BED12
[2022-06-03 22:41] LABS: ALBUMIN 3.1 g/dL (3.4-5.0); ANION GAP 11.6 (8-16); CARBON DIOXIDE 25.3 mmol/L (21-32); CREATININE 1.3 mg/dL (0.6-1.3); POTASSIUM 3.9 mmol/L (3.5-5.1); TOTAL BILIRUBIN 0.6 mg/dL (0.0-1.0)
[2022-06-03 22:45] LABS: RBC,URINE 0-5 /HPF (0-5); WBC,URINE 0-5 /HPF (0-5)
--- NOTE | 2022-06-03 23:00 | NUR ---
LEFT FLANK PAIN, CANT EAT, CHILLS FOR 2 DAYS. WAS SEEN HERE 2 DAYS AGO FOR SIMILAR COMPLAINTS, HAS UPPER GI SCHEDULED FOR June
[2022-06-03] MEDS ORDERED: cefTRIAXone 2,000 MG in DEXTROSE 5% 100 ML IV ONE (23:10)
[2022-06-03] MEDS ORDERED: cefTRIAXone 2,000 MG VIAL ONE (23:11)
[2022-06-04] MEDS ORDERED: DICYCLOMINE 10 MG CAP PO ONE (03:15)
[2022-06-04] MEDS ORDERED: BEN10 PO (03:17)
[2022-06-04] MEDS ORDERED: BISM262T5 PO (03:17)
[2022-06-04 03:30] VITALS: BP 124/83
--- NOTE | 2022-06-04 03:30 | NUR ---
Patient discharged with v/s stable. Written and verbal after care instructions given and explained. Patient alert, oriented and verbalized understanding of instructions. Ambulatory with steady gait. All questions addressed prior to discharge. ID band removed. Patient advised to follow up with PMD. Rx of BENTYL, PEPTO BISMOL given. Patient educated on indication of medication including possible reaction and side effects. Opportunity to ask questions provided and answered.
== END 2022-06-04 03:30 | disposition home or self-care (01) ==
LOC: MED 20:02
DX: R10.9 Unspecified abdominal pain (principal); K21.9 Gastro-esophageal reflux disease without esophagitis; Z88.1 Allergy status to other antibiotic agents; Z88.5 Allergy status to narcotic agent; Z88.8 Allergy status to other drugs, medicaments and biological substances; Z79.899 Other long term (current) drug therapy; Z90.49 Acquired absence of other specified parts of digestive tract
CPT/HCPCS: 36415; 74176; 80053; 81001; 82150; 83690; 85025; 87086; 96361; 96365; 96375; 99285; J0696; J1885; J7030

== ENCOUNTER 2022-07-19 11:23 | Inpatient (IN) | payer OTHER ==
[~2022-07-19] VITALS: Ht 162.6 cm; Wt 133.8 kg
[~2022-07-19 11:23] MED LIST changes: +BISM262T5 PO
[2022-07-19 11:45] VITALS: BP 136/93
--- NOTE | 2022-07-19 12:06 | NUR ---
51 yo/f presens to ED w c/o chest pain and palpitations episode on monday after having a nightmare wich resolved but yesterday had sob after work and exercise pt relates symptoms to her anxiety but wants to make sure because she had high blood pressure at home. pt now c/o heart racing sensation with midternal chest pain 12/13 sore non-rad int, + sob. pt took a baby aspirin, xanax, and omeprazole around 5-6am. pmh: anxiety disorder, gastritis, gerd, diverticulosis allergies: amoxicillin, cephalexin, bactrim, benadryl
[2022-07-19 13:23] LABS: BASOPHILS # (AUTO) 0.1 K/uL (0.00-0.22); BASOPHILS % (AUTO) 1.3 % (0.0-2.0); EOSINOPHILS # (AUTO) 0.3 K/uL (0-0.4); EOSINOPHILS % (AUTO) 3.7 % (0.0-4.0); HEMATOCRIT 29.8 % (36-48); HEMOGLOBIN 9.6 g/dL (12.0-16.0); LYMPHOCYTES # (AUTO) 2.3 K/uL (2.5-16.5); LYMPHOCYTES % (AUTO) 26.4 % (20.5-51.1); MEAN CORPUSCULAR HEMOGLOBIN 23 pg (27-31); MEAN CORPUSCULAR HGB CONC 32 g/dL (33-37); MONOCYTES # (AUTO) 0.5 K/uL (0.8-1.0); MONOCYTES % (AUTO) 6.3 % (1.7-9.3); NEUTROPHILS # (AUTO) 5.4 K/uL (1.8-7.7); NEUTROPHILS % (AUTO) 62.3 % (42.2-75.2); PLATELET COUNT (AUTO) 333 K/uL (140-450); RED BLOOD CELL COUNT(AUTO) 4.14 MIL/uL (4.20-5.40); RED CELL DISTRIBUTION WIDTH 17.7 % (11.6-13.7); WHITE BLOOD COUNT (AUTO) 8.7 K/uL (4.8-10.8)
[2022-07-19 13:55] LABS: HDL CHOLESTEROL 56 mg/dL (40-60); LDL (CALC) 83 mg/dL (60-100); TRIGLYCERIDES 136 mg/dL (30-150)
[2022-07-19 14:23] LABS: ALBUMIN 2.7 g/dL (3.4-5.0); ANION GAP 10.9 (8-16); CREATININE 1.1 mg/dL (0.6-1.3); POTASSIUM 3.9 mmol/L (3.5-5.1); TOTAL BILIRUBIN 0.3 mg/dL (0.0-1.0)
[2022-07-19] MEDS ORDERED: MORPHINE SULFATE 4 MG/ML SYR IVP ONE (15:00)
[2022-07-19] MEDS ORDERED: ACETAMINOPHEN EXTRA STRENGTH 500 MG TAB PO ONE (15:15)
--- NOTE | 2022-07-19 16:10 | NUR ---
pt denies ongoing palpitations or sob, pt reports midsternal chest pain has improved to 7/10
[2022-07-19] MEDS ORDERED: ALPRAZolam 0.5 MG TAB PO ONE (16:40)
--- NOTE | 2022-07-19 18:31 | NUR ---
pt reports chest pain resolved, no symptoms at this time.
--- NOTE | 2022-07-19 19:06 | NUR ---
pt report to sebastian lentz
[2022-07-19] MEDS ORDERED: ONDANSETRON 4 MG/2 ML VIAL IVP PRN (21:25)
[2022-07-19] MEDS ORDERED: MORPHINE SULFATE 4 MG/ML SYR IVP PRN (21:25)
[2022-07-19] MEDS ORDERED: HYDROcodone/APAP 5/325 MG 1 TAB TAB PO PRN (21:25)
[2022-07-20] MEDS ORDERED: OMEP40EC23 PO (00:54)
--- NOTE | 2022-07-20 01:45 | NUR ---
Pt report given to ANTIONETTE. Transfer of care at this time. PATIENT TRANSFERED TO [facility] , RM 107A
--- NOTE | 2022-07-20 01:52 | NUR ---
RECEIVED REPORT FROM ER NURSE FOR CONTINUITY OF CARE. PT IS ALERT AND ORIENTED X4, LATVIAN SPEAKING, AMBULATORY. NO IV ACCESS AT THIS TIME, WILL ATTEMPT TO START IV. OVERALL SKIN IS INTACT. WILL ORIENT PATIENT TO BEDROOM, BATHROOM, AND CALL LIGHT CONTROLS.
--- NOTE | 2022-07-20 01:53 | NUR ---
Patient's Plan of Care was discussed and reviewed with AB: ANTIONETTE
[2022-07-20] MEDS: LORazepam 1 MG TAB PO PRN ×3 (03:38→17:59)
--- NOTE | 2022-07-20 03:50 | NUR ---
PT EXTREMELY ANXIOUS. EXPRESSED CONCERNS ABOUT HER DIAGNOSIS. STATES SHE IS AFRAID TO FALL ASLEEP. ADDRESSED PATIENT CONCERNS AT BEDSIDE. ATIVAN 1MG WAS ADMINISTERED PO, PRN FOR ANXIETY. PT TOLERATED WELL, WILL CONTINUE TO MONITOR THE PT.
[2022-07-20 04:00] VITALS: BP 141/63
[2022-07-20] MEDS: ACETAMINOPHEN 325 MG TAB PO PRN ×2 (06:22→12:24)
[2022-07-20 07:22] LABS: ALBUMIN 2.6 g/dL (3.4-5.0); ANION GAP 13.1 (8-16); CARBON DIOXIDE 26.8 mmol/L (21-32); POTASSIUM 3.9 mmol/L (3.5-5.1); TOTAL BILIRUBIN 0.6 mg/dL (0.0-1.0)
[2022-07-20 08:00] VITALS: BP 123/75
[2022-07-20] MEDS ORDERED: ALPRAZolam 0.5 MG TAB PO SCH (08:14)
[2022-07-20] MEDS ORDERED: APIXABAN 2.5 MG TAB PO SCH (09:00)
[2022-07-20] MEDS ORDERED: PANTOPRAZOLE 40 MG TABEC PO SCH (09:00)
[2022-07-20] MEDS ORDERED: DOCUSATE SODIUM 100 MG GELCAP PO SCH (09:00)
--- NOTE | 2022-07-20 09:18 | NUR ---
PATIENT HAS BEEN SCREENED AND CATEGORIZED LOW NUTRITION RISK. PATIENT WILL BE SEEN WITHIN 7 DAYS OF ADMISSION. 07/26/[address] REVIEWED BY BEKAH WATSON RD
[2022-07-20] MEDS ORDERED: APIX5TAB PO ×3 (09:19→16:52)
[2022-07-20 12:00] VITALS: BP 121/60
[2022-07-20 16:00] VITALS: BP 129/69
[2022-07-20 17:21] VITALS: BP 129/69
--- NOTE | 2022-07-20 18:17 | NUR ---
DISCHARGE PATIENT IN STABLE CONDITION PER PCP ORDER. DISCHARGE INSTRUCTION GIVE, DISCHARGE CONSENT SIGN, IV ACCESS, WRIST BAND, & TEL MONITOR REMOVED. PATIENT WHEEL OUT THE FACILITY AFTER PATIENT FINISH CHANGING. PATIENT AWARE THAT SHE SHOULD F/U W/ MD AFTER DISCHARGE HOME JUAN[facility]O
--- NOTE | 2022-07-21 15:50 | NUR ---
CALLED DR SHANNON ULRICH'S OFFICE LOCATED AT [address] [address]. SPOKE WITH VIVIAN WHO WAS ABLE TO HELP ME SCHEDULE A FOLLOW UP APPOINTMENT FOR 07/29/2022 AT 1130. WENT TO PATIENTS BEDSIDE TO GIVE APPOINTMENT LIP AND INFORM HER OF THE ABOVE INFORMATION.
== END 2022-07-20 18:10 | disposition home or self-care (01) | DRG 134 ==
LOC: MED 11:23 → OBSVTOIN 21:28 → MTU 21:28
PROVIDERS: ADMIT Student in an Organized Health Care Education/Training Program; ATTEND Student in an Organized Health Care Education/Training Program
DX: I26.99 Other pulmonary embolism without acute cor pulmonale (principal); R65.10 Systemic inflammatory response syndrome (SIRS) of non-infectious origin without acute organ dysfunction; E44.1 Mild protein-calorie malnutrition; Z68.43 Body mass index [BMI] 50.0-59.9, adult; F41.9 Anxiety disorder, unspecified; E66.01 Morbid (severe) obesity due to excess calories; Z20.822 Contact with and (suspected) exposure to COVID-19; K21.9 Gastro-esophageal reflux disease without esophagitis; E78.5 Hyperlipidemia, unspecified; Z88.5 Allergy status to narcotic agent; Z88.8 Allergy status to other drugs, medicaments and biological substances
CPT/HCPCS: 36415; 71045; 71275; 80053; 83880; 84484; 85025; 85379; 85730; 87081; 93970; 99285; J2405; Q0092; Q9967

== ENCOUNTER 2022-07-25 10:30 | Emergency (ER) | payer OTHER ==
[~2022-07-25] VITALS: Ht 157.5 cm; Wt 132.4 kg
[~2022-07-25 10:30] MED LIST changes: -ACET-10509 PO; -ACET-8905 PO; +APIX5TAB PO; -BEN10 PO; -BISM262T5 PO; -BPM/118S31 PO; -CIPR500T4 PO; -CYCL-711 PO; -DIAZ10TA7 PO; -DIAZ2TAB6 PO; -DICY10SY13 PO; -DOCU-299 PO; -HYDR-4004 PO; -IBUP-2213 PO; -KETO10TA2 PO; -LID5T TP; -MAG-27 PO; -MECL-303 PO; -METR-435 PO; -NITR100C1 PO; +OMEP40EC23 PO; -ONDA-188 PO; -ONDA-188 SL; -ONDA8TAB87 PO; -PANT40EC PO; -PEG4000P3 PO; -SIME180C9 PO; -VIC PO; -[UNRECOGNIZED DRUG - CODE] PO
[2022-07-25 10:38] VITALS: BP 143/101; PULSE 98; RESP 20; TEMP 99; O2SAT 98
--- NOTE | 2022-07-25 12:29 | NUR ---
PT. AMB. TO BED 2 WITH NO ACUTE DISTRESS
--- NOTE | 2022-07-25 12:51 | NUR ---
51 YO FEMALE PRESENTS TO THE ED WITH COMPLAINTS OF RIGHT LEG PAIN, CHEST TIGHTNESS, AND SHORTNESS OF BREATH SINCE THIS MORNING. WAS DISCHARGED 07/20/2022 FOR PE
--- NOTE | 2022-07-25 12:56 | NUR ---
REFUSED TO CHANGE TO A PT GOWN, "I'LL JUST LIFT MY PANTS UP FOR THE DOCTOR"
[2022-07-25 13:31] LABS: BASOPHILS # (AUTO) 0.1 K/uL (0.00-0.22); BASOPHILS % (AUTO) 0.5 % (0.0-2.0); EOSINOPHILS # (AUTO) 0.3 K/uL (0-0.4); EOSINOPHILS % (AUTO) 2.5 % (0.0-4.0); HEMATOCRIT 32.1 % (36-48); HEMOGLOBIN 10.2 g/dL (12.0-16.0); LYMPHOCYTES # (AUTO) 2.7 K/uL (2.5-16.5); LYMPHOCYTES % (AUTO) 24.7 % (20.5-51.1); MEAN CORPUSCULAR HEMOGLOBIN 23 pg (27-31); MEAN CORPUSCULAR HGB CONC 32 g/dL (33-37); MEAN CORPUSCULAR VOLUME 71.8 fL (80-94); MONOCYTES # (AUTO) 0.7 K/uL (0.8-1.0); MONOCYTES % (AUTO) 6.4 % (1.7-9.3); NEUTROPHILS # (AUTO) 7.1 K/uL (1.8-7.7); NEUTROPHILS % (AUTO) 65.9 % (42.2-75.2); PLATELET COUNT (AUTO) 388 K/uL (140-450); RED BLOOD CELL COUNT(AUTO) 4.47 MIL/uL (4.20-5.40); RED CELL DISTRIBUTION WIDTH 17.4 % (11.6-13.7); WHITE BLOOD COUNT (AUTO) 10.8 K/uL (4.8-10.8)
[2022-07-25 13:50] LABS: ALBUMIN 3.1 g/dL (3.4-5.0); ANION GAP 14.7 (8-16); ASPARTATE AMINOTRANSFERASE 30 U/L (15-37); CARBON DIOXIDE 23.4 mmol/L (21-32); CHLORIDE 103 mmol/L (98-107); CREATININE 1.2 mg/dL (0.6-1.3); GFR ARICAN-AMERICAN 61 mL/min (>90); GLUCOSE 100 mg/dL (74-106); POTASSIUM 4.1 mmol/L (3.5-5.1); SODIUM SERUM 137 mmol/L (136-145); TOTAL BILIRUBIN 0.4 mg/dL (0.0-1.0); UREA NITROGEN, BLOOD 22 mg/dL (7-18)
[2022-07-25 14:32] VITALS: BP 128/66; PULSE 77; RESP 19; O2SAT 99
== END 2022-07-25 15:46 | disposition home or self-care (01) ==
LOC: MED 10:30
DX: R07.89 Other chest pain (principal); R06.02 Shortness of breath; K21.9 Gastro-esophageal reflux disease without esophagitis; F41.9 Anxiety disorder, unspecified; Z90.49 Acquired absence of other specified parts of digestive tract; Z98.890 Other specified postprocedural states; Z79.01 Long term (current) use of anticoagulants; Z79.899 Other long term (current) drug therapy; Z88.1 Allergy status to other antibiotic agents; Z88.0 Allergy status to penicillin; Z88.5 Allergy status to narcotic agent; Z88.8 Allergy status to other drugs, medicaments and biological substances
CPT/HCPCS: 36415; 71045; 80053; 84484; 85025; 99284; 99285

== ENCOUNTER 2022-08-03 14:53 | Emergency (ER) | payer OTHER ==
[~2022-08-03] VITALS: Ht 157.5 cm; Wt 134.7 kg
[2022-08-03 15:07] VITALS: BP 135/115
--- NOTE | 2022-08-03 15:22 | NUR ---
PT AMBULATED TO BED 07
--- NOTE | 2022-08-03 15:33 | NUR ---
DR GARCIA AT BEDSIDE.
--- NOTE | 2022-08-03 15:36 | NUR ---
51 Y/O FEMALE BIB SELF C/O CHEST PAIN 12/13 , SHOULDER PAIN, SHORTNESS OF BREATH FOR TWO DAYS. ALLERGIES-PENECILLIN, CEPHALEXIN, DIPHENDYDRAMINE, BRACTIM, MORPHINE PMH: ANXIETY, BLOOD CLOTS LUNGS MED-ELIQUIS
--- NOTE | 2022-08-03 15:54 | NUR ---
LAB AT BEDSIDE.
[2022-08-03] MEDS ORDERED: ACETAMINOPHEN EXTRA STRENGTH 500 MG TAB PO ONE (16:25)
[2022-08-03 16:29] LABS: ALBUMIN 2.9 g/dL (3.4-5.0); ANION GAP 11.8 (8-16); ASPARTATE AMINOTRANSFERASE 36 U/L (15-37); CARBON DIOXIDE 26.2 mmol/L (21-32); CHLORIDE 104 mmol/L (98-107); CREATININE 1.1 mg/dL (0.6-1.3); GFR ARICAN-AMERICAN 67 mL/min (>90); GLUCOSE 93 mg/dL (74-106); SODIUM SERUM 138 mmol/L (136-145); TOTAL BILIRUBIN 0.3 mg/dL (0.0-1.0); UREA NITROGEN, BLOOD 16 mg/dL (7-18)
[2022-08-03 17:37] LABS: BASOPHILS # (AUTO) 0.1 K/uL (0.00-0.22); BASOPHILS % (AUTO) 0.7 % (0.0-2.0); EOSINOPHILS # (AUTO) 0.2 K/uL (0-0.4); EOSINOPHILS % (AUTO) 2.6 % (0.0-4.0); HEMATOCRIT 30.7 % (36-48); HEMOGLOBIN 9.7 g/dL (12.0-16.0); LYMPHOCYTES # (AUTO) 2.5 K/uL (2.5-16.5); LYMPHOCYTES % (AUTO) 26.9 % (20.5-51.1); MEAN CORPUSCULAR HEMOGLOBIN 23 pg (27-31); MEAN CORPUSCULAR HGB CONC 32 g/dL (33-37); MEAN CORPUSCULAR VOLUME 71.9 fL (80-94); MONOCYTES # (AUTO) 0.6 K/uL (0.8-1.0); MONOCYTES % (AUTO) 6.7 % (1.7-9.3); NEUTROPHILS # (AUTO) 5.9 K/uL (1.8-7.7); NEUTROPHILS % (AUTO) 63.1 % (42.2-75.2); PLATELET COUNT (AUTO) 386 K/uL (140-450); RED BLOOD CELL COUNT(AUTO) 4.27 MIL/uL (4.20-5.40); RED CELL DISTRIBUTION WIDTH 17.6 % (11.6-13.7); WHITE BLOOD COUNT (AUTO) 9.4 K/uL (4.8-10.8)
--- NOTE | 2022-08-03 18:14 | NUR ---
51 Y/O FEMALE BIB SELF, C/O CHEST PAIN, SOB FOR 2 DAYS. PT STATES SHE CAME COME FROM WORK YESTERDAY AND STARTED HAVING TIGHTNESS SENSATION IN HER CHEST. PT STATES ON 07/20 SHE WAS DX WITH PULMONARY EMBOLI AND WAS STARTED ON ELIQUIS. DENIES FEVERS, CHILLS, COUGH, N/V, UNILATERAL SWELLING. A&OX4, AMBULATES WITH STEADY GAIT. PMH: GERD, ANEMIA, PULMONARY EMBOLI, ANXIETY ALLERGY: SEE LIST MED: ELIQUIS
[2022-08-03] MEDS ORDERED: AZIT250T4 PO (18:28)
[2022-08-03] MEDS ORDERED: LID5T TP (18:28)
[2022-08-03 18:58] VITALS: BP 115/82
--- NOTE | 2022-08-03 18:58 | NUR ---
Patient discharged with v/s stable. Written and verbal after care instructions given and explained. Patient alert, oriented and verbalized understanding of instructions. Ambulatory with steady gait. All questions addressed prior to discharge. ID band removed. Patient advised to follow up with PMD. Rx of AZITHROMYICIN, LIDOCAINE HYD given. Opportunity to ask questions provided and answered.
== END 2022-08-03 18:58 | disposition home or self-care (01) ==
LOC: MED 14:53
DX: R07.9 Chest pain, unspecified (principal); M54.50 Low back pain, unspecified; K21.9 Gastro-esophageal reflux disease without esophagitis; F41.9 Anxiety disorder, unspecified; Z88.1 Allergy status to other antibiotic agents; Z88.5 Allergy status to narcotic agent; Z88.8 Allergy status to other drugs, medicaments and biological substances; Z79.899 Other long term (current) drug therapy
CPT/HCPCS: 36415; 71045; 80053; 81025; 84484; 85025; 85379; 93005; 99285

== ENCOUNTER 2022-09-03 23:23 | Emergency (ER) | payer OTHER ==
[~2022-09-03] VITALS: Ht 157.5 cm; Wt 131.1 kg
[~2022-09-03 23:23] MED LIST changes: +AZIT250T4 PO; +LID5T TP
[2022-09-03 23:30] VITALS: BP 161/93; PULSE 93; RESP 16; TEMP 97.7; O2SAT 97
--- NOTE | 2022-09-03 23:30 | NUR ---
to bed ambulatory
--- NOTE | 2022-09-03 23:40 | NUR ---
RECEIVED IN BED 2 WITH C/O ABDOMINAL PAIN WITH SOB AND H/O PE'S ON ELIQUIS. IS SCHEDULED TO SEE GI DR FOR POSSIBLE ENDOSCOPY.. RESPIRATIONS APPEAR REGULAR AND UNLABORED, ATTACHED TO CM = SR, O2 SAT = 100%
--- NOTE | 2022-09-03 23:45 | NUR ---
DR AGUIRRE AT [facility] FOR EXAM
[2022-09-03 23:55] VITALS: TEMP 97.7
[2022-09-04] MEDS ORDERED: LORazepam 2 MG/ML VIAL IVP ONE (00:05)
--- NOTE | 2022-09-04 00:15 | NUR ---
Pt taken to CT
[2022-09-04 00:16] LABS: BASOPHILS % (AUTO) 0.2 % (0.0-2.0); EOSINOPHILS # (AUTO) 0.4 K/uL (0-0.4); EOSINOPHILS % (AUTO) 3.6 % (0.0-4.0); HEMATOCRIT 30.2 % (36-48); HEMOGLOBIN 9.5 g/dL (12.0-16.0); LYMPHOCYTES # (AUTO) 3.8 K/uL (2.5-16.5); MEAN CORPUSCULAR HEMOGLOBIN 22 pg (27-31); MEAN CORPUSCULAR HGB CONC 32 g/dL (33-37); MEAN CORPUSCULAR VOLUME 70.4 fL (80-94); MONOCYTES # (AUTO) 0.8 K/uL (0.8-1.0); MONOCYTES % (AUTO) 8.3 % (1.7-9.3); NEUTROPHILS % (AUTO) 49.9 % (42.2-75.2); PLATELET COUNT (AUTO) 374 K/uL (140-450); RED BLOOD CELL COUNT(AUTO) 4.29 MIL/uL (4.20-5.40); RED CELL DISTRIBUTION WIDTH 17.5 % (11.6-13.7); WHITE BLOOD COUNT (AUTO) 10.1 K/uL (4.8-10.8)
[2022-09-04 00:26] LABS: ALBUMIN 2.7 g/dL (3.4-5.0); ANION GAP 11.7 (8-16); CARBON DIOXIDE 27.3 mmol/L (21-32); TOTAL BILIRUBIN 0.3 mg/dL (0.0-1.0)
--- NOTE | 2022-09-04 02:10 | NUR ---
Patient awake and comfortable in bed. No signs of acute distress at this time.
[2022-09-04 04:12] VITALS: BP 142/77; PULSE 81; RESP 18; O2SAT 99
[2022-09-04] MEDS ORDERED: fentaNYL citrate 0.05 MG/ML VIAL IVP ONE (04:15)
[2022-09-04] MEDS ORDERED: ACETAMINOPHEN EXTRA STRENGTH 500 MG TAB PO ONE (04:35)
--- NOTE | 2022-09-04 04:48 | NUR ---
Patient awake and comfortable in bed. No signs of acute distress at this time.
== END 2022-09-04 05:00 | disposition home or self-care (01) ==
LOC: MED 23:23
DX: R10.13 Epigastric pain (principal); R06.02 Shortness of breath; R14.0 Abdominal distension (gaseous); K21.9 Gastro-esophageal reflux disease without esophagitis; Z88.1 Allergy status to other antibiotic agents; Z88.5 Allergy status to narcotic agent; Z88.8 Allergy status to other drugs, medicaments and biological substances; Z79.899 Other long term (current) drug therapy; Z90.49 Acquired absence of other specified parts of digestive tract
CPT/HCPCS: 36415; 74176; 80053; 83690; 85025; 85379; 96374; 99285; J2060; J3010

== ENCOUNTER 2022-10-20 06:45 | Emergency (ER) | payer OTHER ==
[~2022-10-20] VITALS: Ht 157.5 cm; Wt 132.9 kg
[2022-10-20 06:53] VITALS: BP 157/96; PULSE 84; RESP 19; TEMP 97.4; O2SAT 99
[2022-10-20] MEDS ORDERED: ONDANSETRON 4 MG ODT PO ONE (07:15)
[2022-10-20] MEDS ORDERED: KETOROLAC 15 MG/ML VIAL IM ONE (07:15)
[2022-10-20 07:43] LABS: BASOPHILS # (AUTO) 0.1 K/uL (0.00-0.22); BASOPHILS % (AUTO) 0.7 % (0.0-2.0); EOSINOPHILS # (AUTO) 0.2 K/uL (0-0.4); EOSINOPHILS % (AUTO) 3.2 % (0.0-4.0); HEMATOCRIT 31.5 % (36-48); HEMOGLOBIN 9.8 g/dL (12.0-16.0); LYMPHOCYTES # (AUTO) 2.6 K/uL (2.5-16.5); LYMPHOCYTES % (AUTO) 32.8 % (20.5-51.1); MEAN CORPUSCULAR HEMOGLOBIN 22 pg (27-31); MEAN CORPUSCULAR HGB CONC 31 g/dL (33-37); MEAN CORPUSCULAR VOLUME 70.3 fL (80-94); MONOCYTES # (AUTO) 0.6 K/uL (0.8-1.0); MONOCYTES % (AUTO) 7.7 % (1.7-9.3); NEUTROPHILS # (AUTO) 4.3 K/uL (1.8-7.7); NEUTROPHILS % (AUTO) 55.6 % (42.2-75.2); PLATELET COUNT (AUTO) 379 K/uL (140-450); RED BLOOD CELL COUNT(AUTO) 4.48 MIL/uL (4.20-5.40); RED CELL DISTRIBUTION WIDTH 18.9 % (11.6-13.7); WHITE BLOOD COUNT (AUTO) 7.8 K/uL (4.8-10.8)
[2022-10-20 08:04] LABS: ALBUMIN 2.8 g/dL (3.4-5.0); ANION GAP 11.3 (8-16); CALCIUM 8.5 mg/dL (8.5-10.1); CREATININE 1.3 mg/dL (0.6-1.3); POTASSIUM 4.3 mmol/L (3.5-5.1); TOTAL BILIRUBIN 0.6 mg/dL (0.0-1.0); TOTAL PROTEIN, SERUM 7.9 g/dL (6.4-8.2)
[2022-10-20] MEDS ORDERED: KETOROLAC 15 MG/ML VIAL IVP ONE (08:15)
[2022-10-20] MEDS ORDERED: NACL 0.9% 1,000 ML IV ONE (08:15)
[2022-10-20] MEDS ORDERED: ONDANSETRON 4 MG ODT ONE (08:40)
[2022-10-20 08:46] LABS: BILIRUBIN,URINE NEGATIVE (NEGATIVE); BLOOD, URINE TRACE-I (NEGATIVE); COLOR,URINE YELLOW (YELLOW); LEUKOCYTE ESTERASE ,URINE NEGATIVE (NEGATIVE); NITRITE, URINE NEGATIVE (NEGATIVE); PROTEIN,URINE NEGATIVE (NEGATIVE); UGLUCOSE NEGATIVE (NEGATIVE); UROBILINOGEN,URINE 0.2 EU/dL (0.2 - 1)
[2022-10-20 08:48] LABS: APPEARANCE,URINE SLIGHTLY HAZY (CLEAR)
[2022-10-20 09:01] LABS: BACTERIA,URINE 10-30 (MOD) /HPF (None Seen); MUCUS,URINE 1+ /LPF (None Seen); RBC,URINE 0-5 /HPF (0-5); SQUAMOUS EPITHELIAL CELL,UR 4-10 (MOD) /LPF (0-3 (FEW)); WBC,URINE 0-5 /HPF (0-5)
[2022-10-20] MEDS ORDERED: FAMOTIDINE 20 MG/2 ML VIAL IVP ONE (09:05)
[2022-10-20] MEDS ORDERED: ALUMINUM HYD/MAG/SIMETHICONE 30 ML UDC PO ONE (09:05)
[2022-10-20] MEDS ORDERED: DICYCLOMINE 10 MG CAP PO ONE (09:05)
[2022-10-20] MEDS ORDERED: LORazepam 1 MG TAB PO ONE (09:05)
[2022-10-20] MEDS ORDERED: BEN10 PO (10:06)
[2022-10-20 10:36] VITALS: BP 115/70; PULSE 74; RESP 17; O2SAT 98
== END 2022-10-20 10:36 | disposition home or self-care (01) ==
LOC: MED 06:45
DX: R10.13 Epigastric pain (principal); R11.0 Nausea; K21.9 Gastro-esophageal reflux disease without esophagitis; Z79.899 Other long term (current) drug therapy; Z88.1 Allergy status to other antibiotic agents; Z88.5 Allergy status to narcotic agent; Z88.8 Allergy status to other drugs, medicaments and biological substances
CPT/HCPCS: 36415; 74176; 80053; 81001; 83690; 84484; 85025; 87086; 93005; 96361; 96374; 96375; 99285; J1885; J3490; J7030; Q0162

== ENCOUNTER 2022-12-15 22:24 | Emergency (ER) | payer OTHER ==
[~2022-12-15] VITALS: Ht 157.5 cm; Wt 134.7 kg
[~2022-12-15 22:24] MED LIST changes: +BEN10 PO
[2022-12-15 22:32] VITALS: BP 152/76; PULSE 89; RESP 20; TEMP 98.3; O2SAT 97
[2022-12-15 22:58] LABS: BASOPHILS # (AUTO) 0.1 K/uL (0.00-0.22); BASOPHILS % (AUTO) 1.1 % (0.0-2.0); EOSINOPHILS # (AUTO) 0.4 K/uL (0-0.4); EOSINOPHILS % (AUTO) 4.1 % (0.0-4.0); HEMATOCRIT 28.8 % (36-48); HEMOGLOBIN 9.1 g/dL (12.0-16.0); LYMPHOCYTES # (AUTO) 3.6 K/uL (2.5-16.5); LYMPHOCYTES % (AUTO) 39.8 % (20.5-51.1); MEAN CORPUSCULAR HEMOGLOBIN 23 pg (27-31); MEAN CORPUSCULAR HGB CONC 32 g/dL (33-37); MEAN CORPUSCULAR VOLUME 71.2 fL (80-94); MONOCYTES # (AUTO) 0.7 K/uL (0.8-1.0); MONOCYTES % (AUTO) 7.3 % (1.7-9.3); NEUTROPHILS # (AUTO) 4.3 K/uL (1.8-7.7); NEUTROPHILS % (AUTO) 47.7 % (42.2-75.2); PLATELET COUNT (AUTO) 365 K/uL (140-450); RED BLOOD CELL COUNT(AUTO) 4.04 MIL/uL (4.20-5.40); RED CELL DISTRIBUTION WIDTH 19.3 % (11.6-13.7); WHITE BLOOD COUNT (AUTO) 9.1 K/uL (4.8-10.8)
[2022-12-15 23:17] LABS: INR 0.88 (0.8-1.2); PARTIAL THROMBOPLASTIN TIME 26.3 secs (22-35.6); PROTHROMBIN TIME 9.3 secs (10.8-13.4)
[2022-12-15 23:19] LABS: ALBUMIN 2.5 g/dL (3.4-5.0); ANION GAP 10.7 (8-16); CARBON DIOXIDE 27.8 mmol/L (21-32); CREATININE 1.2 mg/dL (0.6-1.3); POTASSIUM 4.5 mmol/L (3.5-5.1); TOTAL BILIRUBIN 0.2 mg/dL (0.0-1.0)
[2022-12-16 00:33] LABS: APPEARANCE,URINE CLOUDY (CLEAR); BILIRUBIN,URINE NEGATIVE (NEGATIVE); BLOOD, URINE 3+ (NEGATIVE); COLOR,URINE RED (YELLOW); LEUKOCYTE ESTERASE ,URINE TRACE (NEGATIVE); NITRITE, URINE POSITIVE (NEGATIVE); PH,URINE 6.5 (5.0-9.0); PROTEIN,URINE 2+ (NEGATIVE); UGLUCOSE NEGATIVE (NEGATIVE)
[2022-12-16 00:47] LABS: BACTERIA,URINE 10-30 (MOD) /HPF (None Seen); MUCUS,URINE 1+ /LPF (None Seen); RBC,URINE TOO NUMEROUS TO COUN /HPF (0-5); SQUAMOUS EPITHELIAL CELL,UR 0-3 (FEW) /LPF (0-3 (FEW))
[2022-12-16] MEDS ORDERED: MEDR10TA PO (01:24)
[2022-12-16] MEDS ORDERED: NITR100C7 PO (01:24)
[2022-12-16] MEDS ORDERED: FERR325E14 PO (01:24)
[2022-12-16] MEDS ORDERED: CEFP200T20 PO (01:37)
[2022-12-16 01:48] VITALS: BP 140/63; PULSE 91; RESP 12; TEMP 98.3; O2SAT 99
== END 2022-12-16 01:48 | disposition home or self-care (01) ==
LOC: MED 22:24
DX: N92.0 Excessive and frequent menstruation with regular cycle (principal); N39.0 Urinary tract infection, site not specified; D25.9 Leiomyoma of uterus, unspecified; D53.9 Nutritional anemia, unspecified; K21.9 Gastro-esophageal reflux disease without esophagitis; Z88.0 Allergy status to penicillin; Z88.5 Allergy status to narcotic agent; Z88.8 Allergy status to other drugs, medicaments and biological substances; Z79.899 Other long term (current) drug therapy
CPT/HCPCS: 36415; 76856; 80053; 81001; 81025; 85025; 85610; 85730; 86886; 86900; 86901; 87086; 93976; 99284; Q0092

== ENCOUNTER 2022-12-19 06:25 | Emergency (ER) | payer OTHER ==
[~2022-12-19] VITALS: Ht 157.5 cm; Wt 134.7 kg
[~2022-12-19 06:25] MED LIST changes: +CEFP200T20 PO; +FERR325E14 PO; +MEDR10TA PO
[2022-12-19 06:42] VITALS: BP 138/86; PULSE 96; RESP 20; TEMP 98; O2SAT 98
[2022-12-19] MEDS ORDERED: LORazepam 2 MG/ML VIAL IVP ONE (06:55)
[2022-12-19] MEDS ORDERED: NACL 0.9% 500 ML IV ONE (06:55)
[2022-12-19] MEDS ORDERED: LORazepam 2 MG/ML VIAL ONE (08:03)
[2022-12-19 08:06] LABS: BASOPHILS # (AUTO) 0.1 K/uL (0.00-0.22); BASOPHILS % (AUTO) 1.6 % (0.0-2.0); EOSINOPHILS # (AUTO) 0.3 K/uL (0-0.4); HEMATOCRIT 27.5 % (36-48); HEMOGLOBIN 8.6 g/dL (12.0-16.0); LYMPHOCYTES # (AUTO) 2.5 K/uL (2.5-16.5); LYMPHOCYTES % (AUTO) 29.3 % (20.5-51.1); MEAN CORPUSCULAR HEMOGLOBIN 22 pg (27-31); MEAN CORPUSCULAR HGB CONC 31 g/dL (33-37); MEAN CORPUSCULAR VOLUME 71.8 fL (80-94); MONOCYTES # (AUTO) 0.4 K/uL (0.8-1.0); MONOCYTES % (AUTO) 4.4 % (1.7-9.3); NEUTROPHILS # (AUTO) 5.3 K/uL (1.8-7.7); NEUTROPHILS % (AUTO) 61.7 % (42.2-75.2); PLATELET COUNT (AUTO) 318 K/uL (140-450); RED BLOOD CELL COUNT(AUTO) 3.83 MIL/uL (4.20-5.40); RED CELL DISTRIBUTION WIDTH 20.1 % (11.6-13.7); WHITE BLOOD COUNT (AUTO) 8.6 K/uL (4.8-10.8)
[2022-12-19 08:30] LABS: INR 0.9 (0.8-1.2); PROTHROMBIN TIME 9.5 secs (10.8-13.4)
[2022-12-19 08:39] LABS: ALBUMIN 2.7 g/dL (3.4-5.0); CALCIUM 8.1 mg/dL (8.5-10.1); CARBON DIOXIDE 25.2 mmol/L (21-32); CREATININE 1.1 mg/dL (0.6-1.3); POTASSIUM 3.9 mmol/L (3.5-5.1); TOTAL BILIRUBIN 0.3 mg/dL (0.0-1.0); TOTAL PROTEIN, SERUM 7.5 g/dL (6.4-8.2)
[2022-12-19 09:21] LABS: FLU A ANTIGEN negative (NEGATIVE); FLU B ANTIGEN negative (NEGATIVE)
[2022-12-19 09:34] LABS: ANION GAP 15.7 (8-16)
[2022-12-19 11:41] VITALS: BP 133/75; PULSE 87; RESP 12; TEMP 98; O2SAT 100
== END 2022-12-19 10:55 | disposition home or self-care (01) ==
LOC: MED 06:25
DX: R42 Dizziness and giddiness (principal); F41.9 Anxiety disorder, unspecified; N93.9 Abnormal uterine and vaginal bleeding, unspecified; D64.9 Anemia, unspecified; Z20.822 Contact with and (suspected) exposure to COVID-19; K21.9 Gastro-esophageal reflux disease without esophagitis; Z90.49 Acquired absence of other specified parts of digestive tract; Z86.711 Personal history of pulmonary embolism; Z98.890 Other specified postprocedural states; Z79.899 Other long term (current) drug therapy; Z79.01 Long term (current) use of anticoagulants; Z88.0 Allergy status to penicillin; Z88.1 Allergy status to other antibiotic agents; Z88.5 Allergy status to narcotic agent; Z88.8 Allergy status to other drugs, medicaments and biological substances
CPT/HCPCS: 36415; 71045; 80053; 83880; 84484; 85025; 85610; 85730; 86886; 86900; 86901; 87426; 87804; 93005; 96361; 96374; 99285; J2060; J7030

== ENCOUNTER 2022-12-23 13:13 | Emergency (ER) | payer OTHER ==
[~2022-12-23] VITALS: Ht 157.5 cm; Wt 132.4 kg
[2022-12-23 13:38] VITALS: BP 161/104; PULSE 107; RESP 20; TEMP 97.3; O2SAT 100
[2022-12-23] MEDS ORDERED: NACL 0.9% 1,000 ML IV ONE (14:25)
[2022-12-23] MEDS ORDERED: ACETAMINOPHEN EXTRA STRENGTH 500 MG TAB PO ONE (14:25)
[2022-12-23] MEDS ORDERED: MECLIZINE 25 MG TAB PO ONE (14:25)
[2022-12-23 15:16] LABS: BASOPHILS % (AUTO) 0.1 % (0.0-2.0); EOSINOPHILS # (AUTO) 0.3 K/uL (0-0.4); EOSINOPHILS % (AUTO) 2.9 % (0.0-4.0); HEMATOCRIT 27.7 % (36-48); HEMOGLOBIN 8.8 g/dL (12.0-16.0); LYMPHOCYTES # (AUTO) 2.8 K/uL (2.5-16.5); LYMPHOCYTES % (AUTO) 28.7 % (20.5-51.1); MEAN CORPUSCULAR HEMOGLOBIN 23 pg (27-31); MEAN CORPUSCULAR HGB CONC 32 g/dL (33-37); MEAN CORPUSCULAR VOLUME 71.7 fL (80-94); MONOCYTES # (AUTO) 0.7 K/uL (0.8-1.0); MONOCYTES % (AUTO) 6.7 % (1.7-9.3); NEUTROPHILS % (AUTO) 61.6 % (42.2-75.2); PLATELET COUNT (AUTO) 450 K/uL (140-450); RED BLOOD CELL COUNT(AUTO) 3.87 MIL/uL (4.20-5.40); RED CELL DISTRIBUTION WIDTH 19.4 % (11.6-13.7); WHITE BLOOD COUNT (AUTO) 9.8 K/uL (4.8-10.8)
[2022-12-23 15:40] LABS: ALANINE AMINOTRANSFERASE 54 U/L (12-78); ALBUMIN 2.9 g/dL (3.4-5.0); ALKALINE PHOSPHATASE 73 U/L (50-136); ANION GAP 13.5 (8-16); ASPARTATE AMINOTRANSFERASE 46 U/L (15-37); CALCIUM 8.3 mg/dL (8.5-10.1); CARBON DIOXIDE 25.6 mmol/L (21-32); CHLORIDE 105 mmol/L (98-107); CREATININE 1.1 mg/dL (0.6-1.3); GFR ARICAN-AMERICAN 67 mL/min (>90); GFR NON ARICAN-AMERICAN 55 mL/min (>90); GLUCOSE 100 mg/dL (74-106); POTASSIUM 4.1 mmol/L (3.5-5.1); SODIUM SERUM 140 mmol/L (136-145); TOTAL BILIRUBIN 0.3 mg/dL (0.0-1.0); TOTAL PROTEIN, SERUM 8.1 g/dL (6.4-8.2); UREA NITROGEN, BLOOD 12 mg/dL (7-18)
[2022-12-23] MEDS ORDERED: MECL-303 PO (16:03)
[2022-12-23 16:27] VITALS: BP 114/66; PULSE 93; RESP 15; TEMP 97.3; O2SAT 100
== END 2022-12-23 16:28 | disposition home or self-care (01) ==
LOC: MED 13:13
DX: R42 Dizziness and giddiness (principal); R06.02 Shortness of breath; R07.89 Other chest pain; K21.9 Gastro-esophageal reflux disease without esophagitis; Z90.49 Acquired absence of other specified parts of digestive tract; Z98.890 Other specified postprocedural states; Z79.899 Other long term (current) drug therapy; Z79.01 Long term (current) use of anticoagulants; Z79.2 Long term (current) use of antibiotics; Z88.0 Allergy status to penicillin; Z88.1 Allergy status to other antibiotic agents; Z88.8 Allergy status to other drugs, medicaments and biological substances; Z88.5 Allergy status to narcotic agent
CPT/HCPCS: 36415; 71045; 80053; 84484; 85025; 85379; 93005; 96360; 99285; J8597

== ENCOUNTER 2023-02-23 09:58 | Emergency (ER) | payer OTHER ==
[~2023-02-23] VITALS: Ht 157.5 cm; Wt 132.4 kg
[~2023-02-23 09:58] MED LIST changes: +MECL-303 PO
[2023-02-23 10:15] VITALS: BP 155/83; PULSE 93; RESP 22; TEMP 96.7; O2SAT 100
[2023-02-23 11:43] LABS: BASOPHILS # (AUTO) 0.1 K/uL (0.00-0.22); BASOPHILS % (AUTO) 0.8 % (0.0-2.0); EOSINOPHILS # (AUTO) 0.3 K/uL (0-0.4); EOSINOPHILS % (AUTO) 3.1 % (0.0-4.0); HEMATOCRIT 27.1 % (36-48); HEMOGLOBIN 8.6 g/dL (12.0-16.0); LYMPHOCYTES # (AUTO) 2.6 K/uL (2.5-16.5); LYMPHOCYTES % (AUTO) 30.9 % (20.5-51.1); MEAN CORPUSCULAR HEMOGLOBIN 21 pg (27-31); MEAN CORPUSCULAR HGB CONC 32 g/dL (33-37); MEAN CORPUSCULAR VOLUME 67.2 fL (80-94); MONOCYTES # (AUTO) 0.6 K/uL (0.8-1.0); MONOCYTES % (AUTO) 6.7 % (1.7-9.3); NEUTROPHILS % (AUTO) 58.5 % (42.2-75.2); PLATELET COUNT (AUTO) 358 K/uL (140-450); RED BLOOD CELL COUNT(AUTO) 4.04 MIL/uL (4.20-5.40); RED CELL DISTRIBUTION WIDTH 18.5 % (11.6-13.7); WHITE BLOOD COUNT (AUTO) 8.5 K/uL (4.8-10.8)
[2023-02-23 12:00] LABS: ANION GAP 10.8 (8-16); CALCIUM 8.9 mg/dL (8.5-10.1); CARBON DIOXIDE 25.1 mmol/L (21-32); CREATININE 1.1 mg/dL (0.6-1.3); POTASSIUM 3.9 mmol/L (3.5-5.1)
[2023-02-23] MEDS ORDERED: KETOROLAC 30 MG/ML VIAL IVP ONE (12:10)
[2023-02-23] MEDS ORDERED: NACL 0.9% 1,000 ML IV ONE (14:35)
[2023-02-23] MEDS ORDERED: LORazepam 2 MG/ML VIAL IVP ONE (14:35)
[2023-02-23] MEDS ORDERED: APIX5TAB PO (15:46)
[2023-02-23] MEDS ORDERED: DOCU-299 PO (15:57)
[2023-02-23] MEDS ORDERED: MIRABULK PO (15:57)
[2023-02-23] MEDS ORDERED: BEN10 PO (15:57)
[2023-02-23] MEDS ORDERED: BENZ150C2 PO (16:08)
[2023-02-23 16:16] VITALS: BP 135/77; PULSE 85; RESP 19; TEMP 96.7; O2SAT 98
== END 2023-02-23 16:16 | disposition home or self-care (01) ==
LOC: MED 09:58
DX: R06.02 Shortness of breath (principal); R05.9 Cough, unspecified; R07.9 Chest pain, unspecified; K21.9 Gastro-esophageal reflux disease without esophagitis; Z88.0 Allergy status to penicillin; Z88.8 Allergy status to other drugs, medicaments and biological substances; Z79.899 Other long term (current) drug therapy
CPT/HCPCS: 36415; 71045; 71275; 80048; 81002; 81025; 85025; 85379; 93005; 96361; 96374; 96375; 99285; J1885; J2060; J7030; Q9967

== ENCOUNTER 2023-03-10 22:26 | Emergency (ER) | payer OTHER ==
[~2023-03-10] VITALS: Ht 157.5 cm; Wt 132.4 kg
[~2023-03-10 22:26] MED LIST changes: +BENZ150C2 PO; +DOCU-299 PO; +MIRABULK PO
[2023-03-10 22:32] VITALS: BP 144/81; PULSE 104; RESP 20; TEMP 97.8; O2SAT 44
[2023-03-10] MEDS ORDERED: LORazepam 1 MG TAB PO ONE (23:20)
[2023-03-10 23:55] LABS: BASOPHILS # (AUTO) 0.1 K/uL (0.00-0.22); BASOPHILS % (AUTO) 1.2 % (0.0-2.0); EOSINOPHILS # (AUTO) 0.3 K/uL (0-0.4); EOSINOPHILS % (AUTO) 2.7 % (0.0-4.0); HEMATOCRIT 29.7 % (36-48); HEMOGLOBIN 9.2 g/dL (12.0-16.0); LYMPHOCYTES # (AUTO) 3.7 K/uL (2.5-16.5); LYMPHOCYTES % (AUTO) 34.5 % (20.5-51.1); MEAN CORPUSCULAR HEMOGLOBIN 21 pg (27-31); MEAN CORPUSCULAR HGB CONC 31 g/dL (33-37); MEAN CORPUSCULAR VOLUME 67.4 fL (80-94); MONOCYTES # (AUTO) 0.9 K/uL (0.8-1.0); MONOCYTES % (AUTO) 8.2 % (1.7-9.3); NEUTROPHILS # (AUTO) 5.7 K/uL (1.8-7.7); NEUTROPHILS % (AUTO) 53.4 % (42.2-75.2); PLATELET COUNT (AUTO) 433 K/uL (140-450); RED BLOOD CELL COUNT(AUTO) 4.41 MIL/uL (4.20-5.40); WHITE BLOOD COUNT (AUTO) 10.6 K/uL (4.8-10.8)
[2023-03-11 00:04] LABS: ANION GAP 11.6 (8-16); CALCIUM 8.6 mg/dL (8.5-10.1); CARBON DIOXIDE 26.6 mmol/L (21-32); POTASSIUM 4.2 mmol/L (3.5-5.1)
[2023-03-11] MEDS ORDERED: METH4TAB1 PO (05:48)
[2023-03-11] MEDS ORDERED: AZIT250T4 PO (05:48)
[2023-03-11] MEDS ORDERED: MORPHINE SULFATE 2 MG/ML SYR ONE (23:17)
== END 2023-03-11 05:55 | disposition home or self-care (01) ==
LOC: MED 22:26
DX: F41.9 Anxiety disorder, unspecified (principal); R06.02 Shortness of breath; M79.662 Pain in left lower leg; I26.99 Other pulmonary embolism without acute cor pulmonale; K21.9 Gastro-esophageal reflux disease without esophagitis; Z88.0 Allergy status to penicillin; Z88.8 Allergy status to other drugs, medicaments and biological substances; Z79.899 Other long term (current) drug therapy
CPT/HCPCS: 36415; 71275; 80048; 85025; 85379; 87040; 93005; 93970; 99285; Q0092; Q9967; J2270

== ENCOUNTER 2023-05-21 18:08 | Emergency (ER) | payer OTHER ==
[~2023-05-21] VITALS: Ht 157.5 cm; Wt 132.4 kg
[~2023-05-21 18:08] MED LIST changes: +METH4TAB1 PO
[2023-05-21 18:27] VITALS: BP 120/65; PULSE 90; RESP 16; TEMP 98.4; O2SAT 100
[2023-05-21 19:39] VITALS: O2SAT 100
[2023-05-21] MEDS: NACL 0.9% 1,000 ML IV SCH (19:56)
[2023-05-21] MEDS: ACETAMINOPHEN EXTRA STRENGTH 500 MG TAB PO ONE (19:59)
[2023-05-21 20:03] LABS: HEMATOCRIT 32.4 % (36-48); HEMOGLOBIN 10.4 g/dL (12.0-16.0); MEAN CORPUSCULAR HEMOGLOBIN 22 pg (27-31); MEAN CORPUSCULAR HGB CONC 32 g/dL (33-37); MEAN CORPUSCULAR VOLUME 69.3 fL (80-94); PLATELET COUNT (AUTO) 349 K/uL (140-450); RED BLOOD CELL COUNT(AUTO) 4.68 MIL/uL (4.20-5.40); RED CELL DISTRIBUTION WIDTH 23.2 % (11.6-13.7); WHITE BLOOD COUNT (AUTO) 12.6 K/uL (4.8-10.8)
[2023-05-21] MEDS: ONDANSETRON 4 MG/2 ML VIAL IVP ONE (20:24)
[2023-05-21 20:28] LABS: BASOPHILS % (MANUAL) 1 % (0-2); EOSINOPHILS % (MANUAL) 9 % (0-4); LYMPHOCYTES % (MANUAL) 34 % (20-46); MONOCYTES % (MANUAL) 2 % (5-12)
[2023-05-21 20:32] LABS: ANISOCYTOSIS 1+; BURR CELLS 1+; HYPOCHROMASIA 1+; OVALOCYTES 1+; PLATELET ESTIMATE ADEQUATE; POIKILOCYTOSIS 2+; SMUDGE CELLS FEW; STOMATOCYTES 1+
[2023-05-21 20:40] LABS: ANION GAP 9.4 (8-16); CALCIUM 8.1 mg/dL (8.5-10.1); CARBON DIOXIDE 29.9 mmol/L (21-32); CREATININE 1.2 mg/dL (0.6-1.3); POTASSIUM 4.3 mmol/L (3.5-5.1)
[2023-05-21 21:04] LABS: ALBUMIN 2.8 g/dL (3.4-5.0); BILIRUBIN,DIRECT 0.1 mg/dL (0.0-0.3); TOTAL BILIRUBIN 0.3 mg/dL (0.0-1.0); TOTAL PROTEIN, SERUM 8.5 g/dL (6.4-8.2)
[2023-05-21] MEDS ORDERED: ONDA8TAB87 PO (21:36)
== END 2023-05-21 21:54 | disposition home or self-care (01) ==
LOC: MED 18:08
DX: R10.13 Epigastric pain (principal); R11.2 Nausea with vomiting, unspecified; K21.9 Gastro-esophageal reflux disease without esophagitis; Z88.0 Allergy status to penicillin; Z88.8 Allergy status to other drugs, medicaments and biological substances; Z79.899 Other long term (current) drug therapy; Z90.49 Acquired absence of other specified parts of digestive tract
CPT/HCPCS: 36415; 80048; 80076; 81002; 81025; 83690; 85025; 96361; 96374; 99283; J2405; J7030

== ENCOUNTER 2023-05-31 13:42 | Emergency (ER) | payer OTHER ==
[~2023-05-31] VITALS: Ht 157.5 cm; Wt 127.0 kg
[~2023-05-31 13:42] MED LIST changes: +ONDA8TAB87 PO
[2023-05-31 13:47] VITALS: BP 122/80; PULSE 95; RESP 20; TEMP 97.6; O2SAT 99
[2023-05-31] MEDS: NACL 0.9% 1,000 ML IV ONE ×2 (14:49→16:08)
[2023-05-31] MEDS: METOCLOPRAMIDE 10 MG/2 ML INJ VIAL IVP ONE (14:55)
[2023-05-31 14:56] LABS: BASOPHILS # (AUTO) 0.1 K/uL (0.00-0.22); LYMPHOCYTES # (AUTO) 3.2 K/uL (2.5-16.5); NEUTROPHILS # (AUTO) 5.8 K/uL (1.8-7.7)
[2023-05-31 15:24] LABS: BASOPHILS % (AUTO) 0.7 % (0.0-2.0); EOSINOPHILS # (AUTO) 2.8 K/uL (0-0.4); EOSINOPHILS % (AUTO) 21.7 % (0.0-4.0); HEMOGLOBIN 9.7 g/dL (12.0-16.0); LYMPHOCYTES % (AUTO) 25.4 % (20.5-51.1); MEAN CORPUSCULAR HEMOGLOBIN 22 pg (27-31); MEAN CORPUSCULAR HGB CONC 31 g/dL (33-37); MEAN CORPUSCULAR VOLUME 69.6 fL (80-94); MONOCYTES # (AUTO) 0.8 K/uL (0.8-1.0); MONOCYTES % (AUTO) 6.5 % (1.7-9.3); NEUTROPHILS % (AUTO) 45.7 % (42.2-75.2); PLATELET COUNT (AUTO) 355 K/uL (140-450); RED BLOOD CELL COUNT(AUTO) 4.45 MIL/uL (4.20-5.40); RED CELL DISTRIBUTION WIDTH 22.4 % (11.6-13.7); WHITE BLOOD COUNT (AUTO) 12.7 K/uL (4.8-10.8)
[2023-05-31 15:26] LABS: ANION GAP 11.5 (8-16); CALCIUM 8.1 mg/dL (8.5-10.1); CARBON DIOXIDE 28.5 mmol/L (21-32); CREATININE 1.1 mg/dL (0.6-1.3)
[2023-05-31 15:43] LABS: ALBUMIN 2.8 g/dL (3.4-5.0); BILIRUBIN,DIRECT 0.1 mg/dL (0.0-0.3); TOTAL BILIRUBIN 0.4 mg/dL (0.0-1.0); TOTAL PROTEIN, SERUM 7.7 g/dL (6.4-8.2)
[2023-05-31] MEDS ORDERED: BEN10 PO (16:37)
[2023-05-31] MEDS ORDERED: METO-485 PO (16:37)
[2023-05-31 16:55] VITALS: BP 114/58; PULSE 82; RESP 16; TEMP 97.6; O2SAT 100
== END 2023-05-31 16:54 | disposition home or self-care (01) ==
LOC: MED 13:42
DX: R11.2 Nausea with vomiting, unspecified (principal); R19.7 Diarrhea, unspecified; D64.9 Anemia, unspecified; K21.9 Gastro-esophageal reflux disease without esophagitis; Z88.0 Allergy status to penicillin; Z88.1 Allergy status to other antibiotic agents; Z88.5 Allergy status to narcotic agent; Z88.8 Allergy status to other drugs, medicaments and biological substances; Z79.899 Other long term (current) drug therapy
CPT/HCPCS: 36415; 80048; 80076; 82948; 83690; 85025; 96361; 96374; 99283; J2765; J7030

== ENCOUNTER 2023-08-31 08:07 | Emergency (ER) | payer OTHER ==
[~2023-08-31] VITALS: Ht 157.5 cm; Wt 136.1 kg
[~2023-08-31 08:07] MED LIST changes: -BENZ150C2 PO; +BENZ150C7 PO; +METO-485 PO; +SUCR-3 PO; -SUCR1TAB35 PO
[2023-08-31 08:33] VITALS: BP 116/70; PULSE 84; RESP 20; TEMP 97.3; O2SAT 99
[2023-08-31 08:46] VITALS: PULSE 88; RESP 18; O2SAT 100; O2SAT 97
[2023-08-31] MEDS: ALBUTEROL 0.083% 2.5 MG/3 ML NEBU INH ONE (08:46)
[2023-08-31] MEDS ORDERED: LORazepam 1 MG TAB ONE (09:07)
[2023-08-31] MEDS: LORazepam 1 MG TAB PO ONE (09:10)
[2023-08-31] MEDS ORDERED: BENZ200C4 PO (09:54)
[2023-08-31] MEDS ORDERED: PRON INH (09:54)
[2023-08-31 10:15] VITALS: BP 113/55; PULSE 98; RESP 16; TEMP 98.1; O2SAT 98
== END 2023-08-31 10:15 | disposition home or self-care (01) ==
LOC: MED 08:07
DX: J20.9 Acute bronchitis, unspecified (principal); J45.909 Unspecified asthma, uncomplicated; K21.9 Gastro-esophageal reflux disease without esophagitis; Z86.79 Personal history of other diseases of the circulatory system; Z79.1 Long term (current) use of non-steroidal anti-inflammatories (NSAID); Z79.2 Long term (current) use of antibiotics; Z79.899 Other long term (current) drug therapy; Z88.0 Allergy status to penicillin; Z88.1 Allergy status to other antibiotic agents; Z88.5 Allergy status to narcotic agent; Z88.6 Allergy status to analgesic agent
CPT/HCPCS: 71045; 94640; 99283; J7613

== ENCOUNTER 2023-11-02 00:10 | Emergency (ER) | payer OTHER ==
[~2023-11-02] VITALS: Ht 157.5 cm; Wt 131.5 kg
[~2023-11-02 00:10] MED LIST changes: +BENZ200C4 PO; +PRON INH
[2023-11-02 00:26] VITALS: BP 140/76; PULSE 88; RESP 18; TEMP 98.5; O2SAT 97
[2023-11-02 01:08] LABS: BASOPHILS # (AUTO) 0.1 K/uL (0.00-0.22); BASOPHILS % (AUTO) 0.8 % (0.0-2.0); EOSINOPHILS # (AUTO) 0.3 K/uL (0-0.4); EOSINOPHILS % (AUTO) 2.9 % (0.0-4.0); HEMATOCRIT 30.8 % (36-48); HEMOGLOBIN 9.7 g/dL (12.0-16.0); LYMPHOCYTES # (AUTO) 4.3 K/uL (2.5-16.5); LYMPHOCYTES % (AUTO) 42.4 % (20.5-51.1); MEAN CORPUSCULAR HEMOGLOBIN 22 pg (27-31); MEAN CORPUSCULAR HGB CONC 32 g/dL (33-37); MEAN CORPUSCULAR VOLUME 69.5 fL (80-94); MONOCYTES # (AUTO) 0.9 K/uL (0.8-1.0); MONOCYTES % (AUTO) 8.7 % (1.7-9.3); NEUTROPHILS # (AUTO) 4.6 K/uL (1.8-7.7); NEUTROPHILS % (AUTO) 45.2 % (42.2-75.2); PLATELET COUNT (AUTO) 355 K/uL (140-450); RED BLOOD CELL COUNT(AUTO) 4.43 MIL/uL (4.20-5.40); RED CELL DISTRIBUTION WIDTH 21.7 % (11.6-13.7); WHITE BLOOD COUNT (AUTO) 10.1 K/uL (4.8-10.8)
[2023-11-02 01:22] LABS: ALBUMIN 2.9 g/dL (3.4-5.0); ANION GAP 11.3 (8-16); CARBON DIOXIDE 24.9 mmol/L (21-32); CREATININE 1.2 mg/dL (0.6-1.3); POTASSIUM 4.2 mmol/L (3.5-5.1); TOTAL BILIRUBIN 0.5 mg/dL (0.0-1.0); TOTAL PROTEIN, SERUM 7.8 g/dL (6.4-8.2)
[2023-11-02 01:33] LABS: APPEARANCE,URINE CLEAR (CLEAR); BILIRUBIN,URINE NEGATIVE (NEGATIVE); BLOOD, URINE TRACE-I (NEGATIVE); COLOR,URINE YELLOW (YELLOW); LEUKOCYTE ESTERASE ,URINE NEGATIVE (NEGATIVE); NITRITE, URINE NEGATIVE (NEGATIVE); PROTEIN,URINE NEGATIVE (NEGATIVE); UGLUCOSE NEGATIVE (NEGATIVE); UROBILINOGEN,URINE 0.2 EU/dL (0.2 - 1)
[2023-11-02] MEDS: KETOROLAC 30 MG/ML VIAL IVP ONE (02:42)
[2023-11-02] MEDS: LORazepam 1 MG TAB PO ONE (02:42)
[2023-11-02 04:12] VITALS: BP 140/76; PULSE 88; RESP 18; TEMP 98.5; O2SAT 97
[2023-11-02] MEDS ORDERED: ALUMINUM HYD/MAG/SIMETHICONE 30 ML UDC ONE ×2 (05:18→05:23)
[2023-11-02] MEDS ORDERED: DICYCLOMINE HCL LIQUID 10 MG/5 ML UDC ONE (05:18)
[2023-11-02] MEDS: DICYCLOMINE HCL LIQUID 20 MG, ALUMINUM HYD/MAG/SIMETHICONE 30 ML, LIDOCAINE VISCOUS 2% ... PO ONE (05:19)
== END 2023-11-02 05:55 | disposition home or self-care (01) ==
LOC: MED 00:10
DX: R10.12 Left upper quadrant pain (principal); R10.32 Left lower quadrant pain; R11.2 Nausea with vomiting, unspecified; R19.7 Diarrhea, unspecified; R35.0 Frequency of micturition; K21.9 Gastro-esophageal reflux disease without esophagitis; F41.9 Anxiety disorder, unspecified; Z79.899 Other long term (current) drug therapy; Z79.01 Long term (current) use of anticoagulants; Z88.0 Allergy status to penicillin; Z88.1 Allergy status to other antibiotic agents; Z88.8 Allergy status to other drugs, medicaments and biological substances; Z88.5 Allergy status to narcotic agent
CPT/HCPCS: 36415; 74177; 80053; 81003; 81025; 83690; 85025; 96374; 99285; J1885; Q9967